=== PATIENT | female | born 1950 | race Caucasian/White ===

== ENCOUNTER → 2018-06-30 08:56 | Outpatient (CLI) | payer MEDICARE, OTHER, SELFPAY ==
[2018-06-30 10:38] LABS: ALB/GLOB Ratio 0.9 RATIO (0.9-2.4); AST(SGOT) 26 U/L (15-37); Alanine Aminotransfer ALT/SGPT 34 U/L (13-56); Albumin, Serum 3.5 g/dL (3.2-5.0); Alkaline Phosphatase 80 U/L (45-117); Anion Gap 8 (5-15); BUN 12 mg/dL (7-18); BUN/Creat Ratio 17.8 RATIO (10-20); Calcium,Total 9.3 mg/dL (8.5-10.1); Chloride 107 mmol/L (98-107); Cholesterol 275 mg/dL (200); Creatinine, Serum 0.68 mg/dL (0.55-1.02); EST Glomerular Filtration Rate 93 mL/min (>60); Est Glom Filt Rate - Afr Amer 112 mL/min (>60); Glucose 100 mg/dL (74-106); High Density Lipoprotein 47 mg/dL; Potassium 4.2 mmol/L (3.5-5.1); Protein, Total 7.5 g/dL (6.4-8.2); Sodium Level 141 mmol/L (136-145); Triglycerides 143 mg/dL; Very Low Density Lipoprotein 29 mg/dL (5-40)
[2018-06-30 11:01] LABS: Microalbumin,Random Urine < 5.0 mg/L (NO RANGE EST.)
== END ==
PROVIDERS: Family Provider Family Medicine; PCP Family Medicine; Visit Provider Family Medicine
DX: I10 Essential (primary) hypertension (principal)
CPT/HCPCS: 36415; 80053; 80061; 82043; 82570

== ENCOUNTER → 2018-10-05 07:00 | Outpatient (CLI) | payer MEDICARE, OTHER, SELFPAY ==
--- NOTE | 2018-10-05 07:00 | BI_ITS ---
MAMMOGRAPHY - BILATERAL SCREENING REASON FOR EXAM: Female, 68 years old. Routine annual screening examination. PERTINENT HISTORY: Non-contributory. TECHNIQUE: Digital bilateral breast joceline (3D mammographic acquisition) in the CC and MLO projections. 2-D mediolateral oblique (MLO) and craniocaudad (CC) views of both breasts were obtained. CAD: Full Field Digital Mammography with Computer Added Detection was performed. COMPARISON: Comparison is made with prior outside examination dated September 20, 2015 and November 16, 2011. FINDINGS: Breast Composition: There are scattered areas of fibroglandular density. There are no dominant masses or suspicious calcifications. Stable benign-appearing bilateral axillary lymph nodes. No other significant abnormalities are identified. There has been no significant change since the prior study. BI/SCREENING MAMM (CAD), BILAT IMPRESSION: Stable bilateral screening mammogram. Yearly follow-up mammogram recommended. (A) ASSESSMENT CATEGORY: BIRADS Category 2: Benign. A letter regarding these results will be sent to the patient by the facility within 30 days. Approximately 10% of breast cancers are not detected by mammography. A normal mammogram should not delay biopsy of a clinically suspicious abnormality. [id number] Electronically Signed: Jaylan Baig MD at 14:02 EST , Service support ,
== END ==
PROVIDERS: Family Provider Family Medicine; PCP Family Medicine; Referring Provider Nurse Practitioner Women's Health; Visit Provider Nurse Practitioner Women's Health
DX: Z12.31 Encounter for screening mammogram for malignant neoplasm of breast (principal)
CPT/HCPCS: 77063; 77067

== ENCOUNTER → 2020-02-29 09:17 | Outpatient (CLI) | payer MEDICARE, OTHER, SELFPAY ==
[2019-11-13 09:58] VITALS: BMI 30.7
--- NOTE | 2020-02-29 09:18 | BI_ITS ---
MAMMOGRAPHY - BILATERAL SCREENING 3-D TOMOSYNTHESIS REASON FOR EXAM: Female, 70 years old. BILAT SCREENINGN - NO FAM HX - NO PREV SURG''S - RT MOLE MARKED PERTINENT HISTORY: No significant family history. TECHNIQUE: 2-D mammograms and 3-D Tomosynthesis of the breast (s) were performed. CAD was performed. COMPARISON: None. FINDINGS: The breast composition is almost entirely fat. Scattered benign calcifications are seen. No dense spiculated masses or suspicious microcalcifications are identified. No architectural distortion is identified. There is no skin thickening or retraction. There has been no significant change since the prior study. BI/SCREEN MAMM (CAD) W/RAZA BILAT IMPRESSION: No mammographic signs of malignancy. Routine yearly mammograms recommended. ASSESSMENT CATEGORY: BIRADS Category 1: Negative. A letter regarding these results will be sent to the patient by the facility within 30 days. FOLLOW UP RECOMMENDATION: Yearly follow up mammogram recommended. (A) Approximately 10% of breast cancers are not detected by mammography. A normal mammogram should not delay biopsy of a clinically suspicious abnormality. Electronically Signed: Kieran Méndez MD at 11:24 EDT , Service support ,
--- NOTE | 2020-02-29 09:24 | BD_ITS ---
STUDY: DUAL ENERGY X-RAY ABSORPTIOMETRY / DXA REASON FOR EXAM: Female, 70 years old. TECHNIQUE: Bone Mineral Density (BMD) measurements of lumbar spine and bilateral hips were obtained. COMPARISON: None. FINDINGS: Lumbar Spine (L1-L2): g/cm2 (1.226) / T-score (0.5) / Z-score (2.1) Findings are suggestive of normal bone density with a low fracture risk. Left Femur Total: g/cm2 (0.951) / T-score (-0.4) / Z-score (0.9) Left Femoral Neck: g/cm2 (0.841) / T-score (-1.4) / Z-score (0.2) Right Femur Total: g/cm2 (0.899) / T-score (-0.9) / Z-score (0.5) Right Femoral Neck: g/cm2 (0.864) / T-score (-1.3) / Z-score (0.3) BD/Dexa Bone Density Study IMPRESSION: The patient is considered osteopenic as outlined below according to World [employer] Organization (WHO) criteria with a moderate fracture risk. Reference Information: The T-score is the number of standard deviations above or below the standard which is normal for young adults at their peak bone mineral density. The World Health Organization (WHO) interprets the T-scores as follows: Above -1 Normal bone density Between -1 and -2.5 Osteopenia Equal to / or below -2.5 Osteoporosis As a practical clinical guideline, osteopenia may be graded as follows: Mild -1 through -1.5 Moderate -1.6 through -2.0 Severe -2.1 through -2.4 The Z-score is the number of standard deviations above or below age-matched controls. A Z-score of less than -1.5 would be considered abnormal. References: 1. NIH Osteoporosis and Related Bone Diseases http://www.osteo.org 2. International Society for Clinical Densitometry http://www.iscd.org 3. National Osteoporosis Foundation http://www.nof.org Electronically Signed: Cristhian Stack MD at 17:40 EDT Tel , Service support ,
== END ==
PROVIDERS: PCP Family Medicine; Referring Provider Nurse Practitioner Women's Health; Visit Provider Nurse Practitioner Women's Health
DX: Z78.0 Asymptomatic menopausal state (principal); Z12.31 Encounter for screening mammogram for malignant neoplasm of breast
CPT/HCPCS: 77063; 77067; 77080

== ENCOUNTER → 2021-05-29 07:46 | Outpatient (CLI) | payer MEDICARE, OTHER, SELFPAY ==
[2019-11-13 09:58] VITALS: BMI 30.7
--- NOTE | 2021-05-29 07:50 | BI_ITS ---
MAMMOGRAPHY - BILATERAL SCREENING REASON FOR EXAM: Female, 71 years old. Routine annual screening examination. PERTINENT HISTORY: Sister with breast cancer. TECHNIQUE: Digital bilateral breast raza (3D mammographic acquisition) in the CC and MLO projections. 2-D mediolateral oblique (MLO) and craniocaudad (CC) views of both breasts were obtained. CAD: Full Field Digital Mammography with Computer Added Detection was performed. COMPARISON: Comparison is made with prior study dated 02/29/2020 and 10/05/2018. FINDINGS: Breast Composition: There are scattered areas of fibroglandular density. There are no dominant masses or suspicious calcifications. Stable benign appearing bilateral axillary lymph nodes. No other significant abnormalities are identified. There has been no significant change since the prior study. BI/SCRN MAMM (CAD)W/RAZA BILAT IMPRESSION: Stable bilateral screening mammogram. Yearly follow-up mammogram recommended. (A) ASSESSMENT CATEGORY: BIRADS Category 2: Benign. A letter regarding these results will be sent to the patient by the facility within 30 days. Approximately 10% of breast cancers are not detected by mammography. A normal mammogram should not delay biopsy of a clinically suspicious abnormality. [id number] Electronically Signed: Jaylan Baig MD at 9:20 EDT , Service support ,
== END ==
PROVIDERS: PCP Family Medicine; Referring Provider Obstetrics & Gynecology; Visit Provider Obstetrics & Gynecology
DX: Z12.31 Encounter for screening mammogram for malignant neoplasm of breast (principal)
CPT/HCPCS: 77063; 77067

== ENCOUNTER 2021-07-24 17:35 | Outpatient (CLI) | payer MEDICARE, OTHER, SELFPAY ==
[2021-07-24 17:47] VITALS: BP 134/88; PULSE 70; RESP 16; TEMP 37.3; O2SAT 100; BMI 30.7
[2021-07-24 19:00] VITALS: BP 105/69; PULSE 66; RESP 16; TEMP 37.1; O2SAT 100
[2021-07-24 19:56] VITALS: BP 125/65; PULSE 73; RESP 16; TEMP 37.2; O2SAT 100
== END 2021-07-24 19:57 | disposition home or self-care (01) ==
LOC: MS3OUT 17:35 → MS3 17:36
PROVIDERS: PCP Family Medicine; Referring Provider Nurse Practitioner Adult Health; Visit Provider Nurse Practitioner Adult Health
DX: Z23 Encounter for immunization (principal); U07.1 COVID-19
CPT/HCPCS: J7050; M0245; Q0245

== ENCOUNTER → 2022-07-02 | Outpatient (CLI) | payer MEDICARE, OTHER, SELFPAY ==
--- NOTE | 2022-07-02 08:23 | BI_ITS ---
MAMMOGRAPHY - BILATERAL SCREENING REASON FOR EXAM: Female, 72 years old. Routine annual screening examination. PERTINENT HISTORY: Sister with breast cancer. TECHNIQUE: Digital bilateral breast raza (3D mammographic acquisition) in the CC and MLO projections. 2-D mediolateral oblique (MLO) and craniocaudad (CC) views of both breasts were obtained. CAD: Full Field Digital Mammography with Computer Added Detection was performed. COMPARISON: Comparison is made with prior study dated 05/29/2021 and 02/29/2020. FINDINGS: Breast Composition: There are scattered areas of fibroglandular density. There are no dominant masses or suspicious calcifications. Stable benign-appearing bilateral axillary lymph nodes. No other significant abnormalities are identified. There has been no significant change since the prior study. BI/SCRN MAMM (CAD)W/RAZA BILAT IMPRESSION: Stable bilateral screening mammogram. Yearly follow-up mammogram recommended. (A) ASSESSMENT CATEGORY: BIRADS Category 2: Benign. A letter regarding these results will be sent to the patient by the facility within 30 days. Approximately 10% of breast cancers are not detected by mammography. A normal mammogram should not delay biopsy of a clinically suspicious abnormality. [id number] Electronically Signed: Jaylan Baig MD at 9:10 EDT ,
== END | disposition home or self-care (01) ==
LOC: OPBI 08:21
PROVIDERS: PCP Family Medicine; Referring Provider Obstetrics & Gynecology; Visit Provider Obstetrics & Gynecology
DX: Z12.31 Encounter for screening mammogram for malignant neoplasm of breast (principal); Z80.3 Family history of malignant neoplasm of breast
CPT/HCPCS: 77063; 77067

== ENCOUNTER → 2023-07-26 | Outpatient (CLI) | payer MEDICARE, OTHER, SELFPAY ==
--- NOTE | 2023-07-26 08:32 | BI_ITS ---
MAMMOGRAPHY - BILATERAL SCREENING REASON FOR EXAM: Female, 73 years old. Routine annual screening examination. PERTINENT HISTORY: Sister with breast cancer. TECHNIQUE: Digital bilateral breast raza (3D mammographic acquisition) in the CC and MLO projections. 2-D mediolateral oblique (MLO) and craniocaudad (CC) views of both breasts were obtained. CAD: Full Field Digital Mammography with Computer Added Detection was performed. COMPARISON: Comparison is made with prior study dated July 02, 2022 and May 29, 2021. FINDINGS: Breast Composition: There are scattered areas of fibroglandular density. There are no dominant masses or suspicious calcifications. Stable small benign-appearing bilateral axillary lymph nodes. No other significant abnormalities are identified. There has been no significant change since the prior study. BI/SCRN MAMM (CAD)W/RAZA BILAT IMPRESSION: Stable bilateral screening mammogram. Yearly follow-up mammogram recommended. (A) ASSESSMENT CATEGORY: BIRADS Category 2: Benign. A letter regarding these results will be sent to the patient by the facility within 30 days. Approximately 10% of breast cancers are not detected by mammography. A normal mammogram should not delay biopsy of a clinically suspicious abnormality. [id number] Electronically Signed: Jaylan Baig MD at 8:18 EST ,
== END | disposition home or self-care (01) ==
LOC: OPBI 08:32
PROVIDERS: PCP Family Medicine; Referring Provider Nurse Practitioner Women's Health; Visit Provider Nurse Practitioner Women's Health
DX: Z12.31 Encounter for screening mammogram for malignant neoplasm of breast (principal)
CPT/HCPCS: 77063; 77067

== ENCOUNTER 2024-06-27 10:53 | Emergency (ER) | payer MEDICARE, OTHER, SELFPAY ==
[2024-06-27 10:54] VITALS: BP 147/86; PULSE 89; RESP 14; TEMP 35.7; O2SAT 98; BMI 32.5
--- NOTE | 2024-06-27 11:43 | CT_ITS ---
STUDY: CT BRAIN WITHOUT CONTRAST REASON FOR EXAM: Female, 74 years old. Dizziness following head injury. RADIATION DOSAGE (If Supplied By Facility): CTDIvol = ( 44.99 ) mGy, DLP = ( 812.98 ) mGycm TECHNIQUE: Transaxial CT imaging of the brain was performed without administration of intravenous contrast material. Individualized dose optimization techniques were used for this CT. COMPARISON: No relevant priors. FINDINGS: Small scalp hematoma overlying the right frontal bone. Normal calvarium. There is mild cerebral atrophy with widening of the extra-axial spaces and ventricular dilatation. Normal white matter tracts of the cerebral hemispheres. Normal basal ganglia and thalami. Normal brainstem. Normal cerebellum. There is no intracranial hemorrhage. There are no findings of an acute ischemic infarction. Atherosclerotic calcification of the cavernous portions of the internal carotid arteries. Normal visualized paranasal sinuses. CT/Brain/Head without Contrast IMPRESSION: Chronic involutional changes of the brain. Small scalp hematoma overlying the right frontal bone. Electronically Signed: Jaylan Baig MD at 12:33 EDT ,
--- NOTE | 2024-06-27 11:43 | EX.ED.GENINJ ---
HPI History of Present Illness Chief Complaint: Head Injury Informant: patient Onset/Context/Timing Onset: Today Mechanism/Context: Fall and Trip Quality of Pain: Aching Location: Right frontal scalp Worsened by: Nothing Relieved by: Ice Associated Symptoms Associated Symptoms: Negative for Parasthesias, Weakness, Loss of function, Inability to ambulate, Loss of consciousness or Amnesia Narrative Narrative: Patient presents with head injury that occurred today. Patient states she tripped and fell forward. Patient states she hit her right frontal area on the door frame. Patient denies any loss of consciousness. Patient states she did break her glasses. Patient denies any visual changes. Patient states she applied ice to the area. Patient states this helped with the pain and swelling. Patient describes her pain as aching. Patient states she takes 81 mg of aspirin daily. Patient denies taking any anticoagulants. [facility] Medical History COVID-19 Pulmonary embolus History of ovarian cancer Home Medications ?Medication ?Instructions ?Recorded ?Last Taken ?Type aspirin 81 mg chewable tablet 81 mg PO DAILY 10/24/18 Unknown History Allergy/AdvReac Type Severity Reaction Status Date / Time penicillin G Allergy Mild Other Verified 06/27/24 10:54 Sulfa (Sulfonamide Allergy Mild other Verified 06/27/24 10:54 Antibiotics) Family History Mother Heart disease Father Hypertension Sister Breast cancer Surgical History History of right oophorectomy History of total abdominal hysterectomy Social History Smoking Status: Never smoker alcohol intake: current alcohol intake frequency: holidays/special occasions only substance use type: does not use caffeine: Yes what type of physical activity do you participate in: walking seatbelt use: always do you feel safe at home: Yes additional social history: [employer] self employed 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 ROS ROS ED Constitutional Constitutional ED: Denies chills or fever(s) Eyes Eyes: Denies blurry vision or change in vision ENT ENT ED: Denies rhinorrhea or sore throat Cardiovascular Cardiovascular: Denies chest pain or palpitations Respiratory/Chest Respiratory/Chest: Denies cough or dyspnea Gastrointestinal Gastrointestinal: Reports nausea; Denies vomiting Genitourinary Genitourinary ED: Denies dysuria or hematuria Musculoskeletal Musculoskeletal: Denies back pain or neck pain Integumentary Denies abscess or rash Neurologic Neurologic: Reports headache(s); Denies weakness Allergic/Immunologic Allergic/Immunologic ED: Denies mouth swelling or urticaria EXAM Physical Exam Const Vital Signs: 06/27/24 10:54 06/27/24 10:57 06/27/24 11:57 Temperature 96.3 F L 97.8 F Temperature Source Temporal Oral Pulse Rate 89 78 Respiratory Rate 14 16 Respiratory Effort Normal Respiratory Depth Normal Respiratory Pattern Normal Blood Pressure 147/86 H 132/78 H Blood Pressure Mean 106 96 Pulse Ox 98 98 Oxygen Delivery Method Room Air Room Air Room Air 06/27/24 13:00 Temperature 97.8 F Temperature Source Temporal Pulse Rate 78 Respiratory Rate 16 Respiratory Effort Respiratory Depth Respiratory Pattern Blood Pressure 137/64 H Blood Pressure Mean 88 Pulse Ox 98 Oxygen Delivery Method Room Air Positive well nourished and well developed General Appearance ED: well developed and NAD HEENT HEENT Narrative: There is tenderness and a small hematoma of the right frontal scalp area. There is no bony crepitance or step-off noted. There are no lacerations noted. There are no abrasions noted. Eyes PERRL and EOMs intact bilaterally Neck full ROM Resp normal respiratory effort and clear to auscultation bilaterally Cardio regular rhythm Rate: regular rate GI non-tender and non-distended Palpation: soft Extremity normal to inspection and full ROM Neuro oriented x3, CN's II-XII intact bilaterally, moves all extremities, no focal motor deficits and no sensory deficits noted [place] Coma Scale: document GCS findings Spontaneous Obeys Commands Oriented 15 Sensorium / Orientation: alert Motor Exam: strength 5/5 throughout Psych mental status grossly normal MDM MDM MDM Narrative Medical decision making narrative: Differential diagnosis includes intracranial bleeding, concussion, and contusion. CT scan of the brain will be obtained to assess for intracranial bleeding. Radiography Diagnostic Testing: Clinical Impression(s) from Imaging Studies Brain CT 06/27/24 11:43 IMPRESSION: Chronic involutional changes of the brain. Small scalp hematoma overlying the right frontal bone. Electronically Signed: Jaylan Baig MD at 12:33 EDT , CT scan of the brain was obtained. There is no acute intracranial abnormality. This was interpreted by the radiologist and was also independently reviewed by myself. Treatment and Re-Evaluation Narrative: Patient was advised of her findings. Patient was instructed to take Tylenol as needed for pain. Patient was instructed to continue using ice to the area. Patient was instructed to follow-up with her primary care physician in 5 to 7 days. Patient understood and was agreeable with the plan. All questions were answered. Discharge Plan Triage Chief Complaint: Head Injury ED Provider: Sean Westbrook Dx/Rx/DC Orders Clinical Impression: Closed head injury, Contusion of right temporofrontal scalp Instructions: ED Head Injury (Adult) Prescriptions: No Action aspirin 81 mg tablet,chewable 81 mg PO DAILY Primary Care Provider: Sean Martin Referrals: Sean Martin MD [Primary Care Provider] - 5-7 Days Print Language: Faroese Disposition Disposition: Home, Self Care
[2024-06-27 11:57] VITALS: BP 132/78; PULSE 78; RESP 16; TEMP 36.6; O2SAT 98
[2024-06-27 13:00] VITALS: BP 137/64; PULSE 78; RESP 16; TEMP 36.6; O2SAT 98
[2024-06-27 13:33] VITALS: BP 134/68; PULSE 89; RESP 14; TEMP 36.6; O2SAT 100
== END 2024-06-27 13:34 | disposition home or self-care (01) ==
PROVIDERS: Emergency Provider Emergency Medicine; PCP Family Medicine; Visit Provider Emergency Medicine
DX: S00.03XA Contusion of scalp, initial encounter (principal); Z90.710 Acquired absence of both cervix and uterus; W01.0XXA Fall on same level from slipping, tripping and stumbling without subsequent striking against object, initial encounter; Z86.16 Personal history of COVID-19; Z86.711 Personal history of pulmonary embolism; Z85.43 Personal history of malignant neoplasm of ovary; Z79.82 Long term (current) use of aspirin
CPT/HCPCS: 70450; 99282

== ENCOUNTER → 2024-07-27 | Outpatient (CLI) | payer MEDICARE, OTHER, SELFPAY ==
--- NOTE | 2024-07-27 09:41 | BI_ITS ---
MAMMOGRAPHY - BILATERAL SCREENING REASON FOR EXAM: Female, 74 years old. Routine annual screening examination. PERTINENT HISTORY: Sister with breast cancer. TECHNIQUE: Digital bilateral breast raza (3D mammographic acquisition) in the CC and MLO projections. 2-D mediolateral oblique (MLO) and craniocaudad (CC) views of both breasts were obtained. CAD: Full Field Digital Mammography with Computer Added Detection was performed. COMPARISON: Comparison is made with prior study July 26, 2023 and July 02, 2022. FINDINGS: Breast Composition: There are scattered areas of fibroglandular density. There are no dominant masses or suspicious calcifications. Stable benign-appearing bilateral axillary lymph nodes. No other significant abnormalities are identified. There has been no significant change since the prior study. BI/SCRN MAMM (CAD)W/RAZA BILAT IMPRESSION: Stable bilateral screening mammogram. Yearly follow-up mammogram recommended. (A) ASSESSMENT CATEGORY: BIRADS Category 2: Benign. A letter regarding these results will be sent to the patient by the facility within 30 days. Approximately 10% of breast cancers are not detected by mammography. A normal mammogram should not delay biopsy of a clinically suspicious abnormality. [id number] Electronically Signed: Jaylan Baig MD at 11:13 EST ,
== END | disposition home or self-care (01) ==
LOC: OPBI 09:41
PROVIDERS: PCP Family Medicine; Referring Provider Obstetrics & Gynecology; Visit Provider Obstetrics & Gynecology
DX: Z12.31 Encounter for screening mammogram for malignant neoplasm of breast (principal); Z80.3 Family history of malignant neoplasm of breast
CPT/HCPCS: 77063; 77067

== ENCOUNTER → 2024-11-07 | Outpatient (CLI) | payer MEDICARE, OTHER, SELFPAY ==
--- NOTE | 2024-11-07 12:39 | US_ITS ---
PROCEDURE: KIDNEY AND BLADDER REASON FOR EXAM: Recurrent UTIs. TECHNIQUE: Bilateral renal ultrasound. COMPARISON: None. FINDINGS: Normal renal sizes, parenchymal thicknesses, and echotextures. No hydronephrosis. 1.4 cm x 1.5 cm x 1.2 cm cyst in the midportion of the left kidney. RIGHT Kidney Size: 10.6 cm x 5.8 cm x 5.1 cm Volume: 467 mL Cortical Thickness (if discernible): 1.1 cm (>6mm is normal) LEFT Kidney Size: 10.9 cm x 5.1 cm x 4.8 cm Volume: 141 mL Cortical Thickness (if discernible): 1 cm (>6mm is normal) The urinary bladder is unremarkable. US/Kidney and Bladder IMPRESSION: 1.4 cm x 1.5 cm x 1.2 cm cyst in the midportion of the left kidney. No other abnormality is seen. Reading Location: [id number]
== END | disposition home or self-care (01) ==
LOC: US 12:35
PROVIDERS: PCP Family Medicine; Referring Provider Family Medicine; Visit Provider Family Medicine
DX: N39.0 Urinary tract infection, site not specified (principal)
CPT/HCPCS: 76770

== ENCOUNTER → 2025-07-30 | Outpatient (CLI) | payer MEDICARE, OTHER, SELFPAY ==
--- OUTSIDE RECORDS SUMMARY | 2025-07-30 07:04 | XMS RPT_ITS | CCD ---
Author Organization [facility] CliniSyin Care Team Providers Care Wet Process Miller Head Name Role Phone Sean Martin MD Primary Care Unavailable Omley, Trevor H Admitting Unavailable Omley, Trevor H Attending Unavailable Sean Martin MD Primary Care Unavailable Jacinto Fitzpatrick Admitting Unavailable Jacinto Fitzpatrick Attending Unavailable Dr. Sean Martin MD Primary Care Provider Dr. Cookie Patel DO Attending Provider Dr. Cookie Patel DO Referring Provider Dr. Sean Martin MD Referring Provider Dr. Sean Martin MD Attending Provider Sean Martin Attending Unavailable Sean Martin Referring Unavailable Martin, Sean Primary Care Unavailable Mario, Sean Primary Care Unavailable Sean Westbrook Attending Unavailable Martin, Sean Primary Care Unavailable Prim MACHINE PECAN PICKER, Ayana Attending Unavailable Bernardo MACHINE PECAN PICKER, Ayana Referring Unavailable Martin, Sean Referring Unavailable Cookie Patel Attending Unavailallison e Sean Martin Primary Care Unavailable Mario, Sean Primary Care Unavailable Cookie Patel Attending Unavailabl e Cookie Patel Referring Unavailabl e Allergies Allergy Classification Reported Allergen(s) Allergy Type Date of Onset Reaction(s) Facility (3 sources) Penicillin G Drug Allergy 1 [facility] (3 sources) Sulfonamides (Antibiotic) Allergy to substance 1 [facility] (1 source) Gluten; Translations: [Glutens] Propensity to adverse reactions to food (disorder) [facility] Repository (1 source) Penicillins; Translations: [penicillins] Propensity to adverse reactions to drug (disorder) [facility] Rep[facility] (1 source) Soy protein; Translations: [Soy] Propensity to adverse reactions to food (disorder) [facility] (1 source) Sulfonamides (Antibiotic); Translations: [sulfa drugs] Propensity to adverse reactions to drug (disorder) [facility] Repository (1 source) Penicillin Drug Allergy 4 [facility] Rep[facility] (1 source) Sulfonamides (Antibiotic) Drug allergy (disorder) 4 [facility] Repository Medications Current Medications Medication Drug Class(es) Dates Sig (Normalized) Sig (Original) aspirin 81 mg chewable tablet (3 sources) Platelet Aggregation Inhibitor, Nonsteroidal Anti-inflammatory Drug Start: 10-24-2018 take 1 tablet by mouth once daily Aspirin 81 mg tablet,chewable Active 81 mg PO DAILY October 24, 2018 1:00am Problems Active Problems Problem Classification Problem Date Documented Da te Episodic/Chronic Cancer of ovary (3 sources) History of malignant neoplasm of ovary; Translations: [Personal history of malignant neoplasm of ovary] 08-18-2022 Episodic Comment on above: 1998, declines kartik ic testing Cancer of uterus (3 sources) History of malignant neoplasm of endometrium; Translations: [Personal history of malignant neoplasm of other parts of uterus] 08-12-2021 Episodic Comment on above: 2001 Other circulatory disease (3 sources) Labile hypertension due to being in a clinical environment; Translations: [Elevated blood-pressure reading, without diagnosis of hypertension] 08-12-2021 Episodic Comment on above: monitors at home. Other injuries and conditions due to external causes (1 source) Closed injury of head; Translations: [Unspecified injury of head, initial encounter] 07-05-2024 Episodic Other screening for suspected conditions (not mental disorders or infectious disease) (2 sources) Encounter for screening mammogram for malignant neoplasm of breast; Translations: [Encounter for screening mammogram for malignant neoplasm of breast] Onset: 08-25-2024 Episodic Superficial injury; contusion (1 source) Contusion of scalp; Translations: [Contusion of scalp, initial encounter] 07-05-2024 Episodic Viral infection (3 sources) Disease caused by 2019-nCoV; Translations: [COVID-19] 08-12-2021 Episodic Past or Other Problems Problem Classification Problem Date Documented Da te Episodic/Chronic Other injuries and conditions due to external causes (1 source) Unspecified injury of head, initial encounter; Translations: [Unspecified injury of head, initial encounter] Onset: 07-18-2024 Episodic Urinary tract infections (1 source) Urinary tract infection, site not specified; Translations: [Urinary tract infection, site not specified] Onset: 11-22-2024 Episodic Results Test Name Value Interpretation Reference Range Facil ity Kidney and Bladderon 025 Kidney and Bladder [facility] Imaging Services [address] [place], [place] [id number] Kidney and Bladder MR#: [id number] Acct: [id number] Name: VIDA GARCIA Rep #: [id number] : 1950 F 74 From: Jaylan quintero MD PCP: Dr. Sean Martin MD Status: REG CLI Study: Kidney and Bladder Date of Exam: 11/07/24 Exam# [id number] Ordering Dr: Sean Martin MD PROCEDURE: KIDNEY AND BLADDER REASON FOR EXAM: Recurrent UTIs. TECHNIQUE: Bilateral renal ultrasound. COMPARISON: None. FINDINGS: Normal renal sizes, parenchymal thicknesses, and echotextures. No hydronephrosis. 1.4 cm x 1.5 cm x 1.2 cm cyst in the midportion of the left kidney. RIGHT Kidney Size: 10.6 cm x 5.8 cm x 5.1 cm Volume: 467 mL Cortical Thickness (if discernible): 1.1 cm (>6mm is normal) LEFT Kidney Size: 10.9 cm x 5.1 cm x 4.8 cm Volume: 141 mL Cortical Thickness (if discernible): 1 cm (>6mm is normal) The urinary bladder is unremarkable. US/Kidney and Bladder IMPRESSION: 1.4 cm x 1.5 cm x 1.2 cm cyst in the midportion of the left kidney. No other abnormality is seen. Reading Location: [id number] CC: Dr. Sean Martin MD Security Assurance Analyst: Signed Normal [facility] Yam Curer Office Visit Reporton 08-25-2024 Yam Curer Office Visit Report [facility]'[address], [address] [place] [address] OFFICE VISIT Date of Service: 08/25/24 MR#: [id number] Acct: [id number] Name: VIDA GARCIA Rep #: [id number] : 1950 Provider: Dr. 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 Complaint: Annual Director Of Learning Required: No Is patient in pain?: No Allergies penicillin G Allergy (Mild, Verified 08/25/24 08:00) Other Sulfa (Sulfonamide Antibiotics) Allergy (Mild, Verified 08/25/24 08:00) other Medications ???Medication ???Instructions ???Recorded ???Confirmed ???Type aspirin 81 mg chewable tablet 81 mg PO DAILY 10/24/18 08/25/24 History Is last menstrual period known: No Post menopausal: Yes Patient : No : No [facility] Medical History COVID-19 Pulmonary embolus History of ovarian cancer Surgical History History of right oophorectomy History of total abdominal hysterectomy Family History Mother Heart disease Father Hypertension Sister Breast cancer Social History Smoking Status: Never smoker alcohol intake: current alcohol intake frequency: holidays/special occasions only substance use type: does not use caffeine: Yes what type of physical activity do you participate in: walking seatbelt use: always do you feel safe at home: Yes additional social history: [employer] self employed 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 Date Name GA/Weeks Outcome Route Bth Weight Infant Gen Labor Lgth Anesthesia Del Locat Provider FOB Unknown 1979 Michael live - full term Unknown 1982 [place] live - full term HPI Encounter for routine gynecological examination Details: VIDA GARCIA is a 74 year old who presents for annual exam. 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 never needed chemo or radiation. Female Reproductive History Questions: metorrhagia: No, sexually active: Yes, dyspareunia: No and PCB: No Menopausal Symptoms: No hot flashes, No night sweats, No weight change, No mood changes, No difficulty concentrating, No sleep problems and No change in libido ROS Const Constitutional: Reports as per HPI; Denies fatigue, increased appetite, poor appetite, night sweats, weight gain or weight loss Cardio Card: Denies chest pain Resp Resp: Denies cough or dyspnea GI GI: Reports as per HPI; Denies abdominal pain, bloating, constipation, nausea or vomiting : Reports as per HPI and other; Denies difficulty voiding, dysuria, hematuria, hot flashes, nipple discharge, pelvic pain, prolapse symptoms, urinary frequency, urinary incontinence, urinary urgency, vaginal discharge, vaginal dr yness, vaginal odor or vaginal pruritus Skin Skin/Breast: Denies changing lesions, breast mass, breast pain, breast skin changes or nipple discharge Psych Psych: Denies anxiety, change in libido, depression or difficulty concentrating Exam Const General: cooperative, healthy appearing, comfortable, no acute distress, well developed and well groomed [facility] Head: normal to inspection and normocephalic Ears: hearing grossly normal bilaterally and external ears normal Nose: external nose normal Face and sinus: normal facial exam Neck Neck: normal visual inspection, full ROM and no lymphadenopathy Thyroid: thyroid normal Chest Chest palpation inspection: normal inspection of the chest Breast inspection: normal inspection of the breasts and normal inspection of the axillae Breast palpation: normal palpation of the breasts, normal palpation of the axillae and no axillary lymphadenopathy Resp Effort Inspection: normal respiratory effort GI Inspection: normal to inspection and non-distended Palpation: soft, no hepatosplenomegaly and no guarding General: bladder normal to palpation Exter (more content not included)... Normal [facility] SCRN MAMM (CAD)W/RAZA BILATo n 07-27-2024 SCRN MAMM (CAD)W/RAZA BILAT [facility] Imaging Services [address] [place] [address] SCRN MAMM (CAD)W/RAZA BILAT MR#: [id number] Acct: [id number] Name: VIDA GARCIA Rep #: [id number] : 1950 F 74 From: Jaylan quintero MD PCP: Dr. Sean Martin MD Status: [facility] Study: SCRN MAMM (CAD)W/RAZA BILAT Date of Exam: 07/08 09/29 Exam# [id number] Ordering Dr: Cookie Patel DO [id number] MAMMOGRAPHY - BILATERAL SCREENING REASON FOR EXAM: Female, 74 years old. Routine annual screening examination. PERTINENT HISTORY: Sister with breast cancer. TECHNIQUE: Digital bilateral breast raza (3D mammographic acquisition) in the CC and MLO projections. 2-D mediolateral oblique (MLO) and craniocaudad (CC) views of both breasts were obtained. CAD: Full Field Digital Mammography with Computer Added Detection was performed. COMPARISON: Comparison is made with prior study July 26, 2023 and July 02, 2022. FINDINGS: Breast Composition: There are scattered areas of fibroglandular density. There are no dominant masses or suspicious calcifications. Stable benign-appearing bilateral axillary lymph nodes. No other significant abnormalities are identified. There has been no significant change since the prior study. BI/SCRN MAMM (CAD)W/RAZA BILAT IMPRESSION: Stable bilateral screening mammogram. Yearly follow-up mammogram recommended. (A) ASSESSMENT CATEGORY: BIRADS Category 2: Benign. A letter regarding these results will be sent to the patient by the facility within 30 days. Approximately 10% of breast cancers are not detected by mammography. A normal mammogram should not delay biopsy of a clinically suspicious abnormality. [id number] Electronically Signed: Jaylan Baig MD at 11:[address] [facility] Reading Location ID and State: [facility] / [place] , Service support , CC: Dr. Sean Martin MD; Dr. Cookie Patel DO Security Assurance Analyst: Signed Normal [facility] Brain/Head without Contrasto n 06-27-2024 Brain/Head without Contrast [facility] Imaging Services [address] [place] [address] Brain/Head without Contrast MR#: [id number] Acct: [id number] Name: VIDA GARCIA Rep #: [id number] : 1950 F 74 From: Jaylan quintero MD PCP: Dr. Sean Martin MD Status: [facility] Study: Brain/Head without Contrast Date of Exam: 06/07 10/30 Exam# [id number] Ordering Dr: Sean Westbrook DO [id number] STUDY: CT BRAIN WITHOUT CONTRAST REASON FOR EXAM: Female, 74 years old. Dizziness following head injury. RADIATION DOSAGE (If Supplied By Facility): CTDIvol = ( 44.99 ) mGy, DLP = ( 812.98 ) mGycm TECHNIQUE: Transaxial CT imaging of the brain was performed without administration of intravenous contrast material. Individualized dose optimization techniques were used for this CT. COMPARISON: No relevant priors. FINDINGS: Small scalp hematoma overlying the right frontal bone. Normal calvarium. There is mild cerebral atrophy with widening of the extra-axial spaces and ventricular dilatation. Normal white matter tracts of the cerebral hemispheres. Normal basal ganglia and thalami. Normal brainstem. Normal cerebellum. There is no intracranial hemorrhage. There are no findings of an acute ischemic infarction. Atherosclerotic calcification of the cavernous portions of the internal carotid arteries. Normal visualized paranasal sinuses. CT/Brain/Head without Contrast IMPRESSION: Chronic involutional changes of the brain. Small scalp hematoma overlying the right frontal bone. Electronically Signed: Jaylan Baig MD at 12:33 EDT Reading Location ID and State: [facility] / [place] , Service support , CC: Dr. Sean Westbrook DO; Dr. Sean Martin MD Security Assurance Analyst: Signed Normal [facility] Emergency Department Summary on 06-27-2024 Emergency Department Summary [facility] Medical Records Department [address] [place] [address] Emergency Department Summary 06/27/24 MR#: [id number] Acct: [id number] Name: VIDA GARCIA Rep #: [id number] : 1950 74 From: Sean Westbrook DO PCP: Dr. Sean Martin MD Status:DEP ER Location: ED HPI History of Present Illness Chief Complaint: Head Injury Informant: patient Onset/Context/Timing Onset: Today Mechanism/Context: Fall and Trip Quality of Pain: Aching Location: Right frontal scalp Worsened by: Nothing Relieved by: Ice Associated Symptoms Associated Symptoms: Negative for Parasthesias, Weakness, Loss of function, Inability to ambulate, Loss of consciousness or Amnesia Narrative Narrative: Patient presents with head injury that occurred today. Patient states she tripped and fell forward. Patient states she hit her right frontal area on the door frame. Patient denies any loss of consciousness. Patient states she did break her glasses. Patient denies any visual changes. Patient states she applied ice to the area. Patient states this helped with the pain and swelling. Patient describes her pain as aching. Patient states she takes 81 mg of aspirin daily. Patient denies taking any anticoagulants. [facility] Medical History COVID-19 Pulmonary embolus History of ovarian cancer Home Medications ???Medication ???Instructions ???Recorded ???Last Taken ???Type aspirin 81 mg chewable tablet 81 mg PO DAILY 10/24/18 Unknown History Allergy/AdvReac Type Severity Reaction Status Date / Time penicillin G Allergy Mild Other Verified 06/27/24 10:54 Sulfa (Sulfonamide Allergy Mild other Verified 06/27/24 10:54 Antibiotics) Family History Mother Heart disease Father Hypertension Sister Breast cancer Surgical History History of right oophorectomy History of total abdominal hysterectomy Social History Smoking Status: Never smoker alcohol intake: current alcohol intake frequency: holidays/special occasions only substance use type: does not use caffeine: Yes what type of physical activity do you participate in: walking seatbelt use: always do you feel safe at home: Yes additional social history: [employer] self employed 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 ROS ROS ED Constitutional Constitutional ED: Denies chills or fever(s) Eyes Eyes: Denies blurry vision or change in vision ENT ENT ED: Denies rhinorrhea or sore throat Cardiovascular Cardiovascular: Denies chest pain or palpitations Respiratory/Chest Respiratory/Chest: Denies cough or dyspnea Gastrointestinal Gastrointestinal: Reports nausea; Denies vomiting Genitourinary Genitourinary ED: Denies dysuria or hematuria Musculoskeletal Musculoskeletal: Denies back pain or neck pain Integumentary Denies abscess or rash Neurologic Neurologic: Reports headache(s); Denies weakness Allergic/Immunologic Allergic/Immunologic ED: Denies mouth swelling or urticaria EXAM Physical Exam Const Vital Signs: 06/27/24 10:54 06/27/24 10:57 06/27/24 11:57 Temperature 96.3 F L 97.8 F Temperature Source Temporal Oral Pulse Rate 89 78 Respiratory Rate 14 16 Respiratory Effort Normal Respiratory Depth Normal Respiratory Pattern Normal Blood Pressure 147/86 H 132/78 H Blood Pressure Mean 106 96 Pulse Ox 98 98 Oxygen Delivery Method Room Air Room Air Room Air 06/27/24 13:00 Temperature 97.8 F Temperature Source Temporal Pulse Rate 78 Respiratory Rate 16 Respiratory Effort Respiratory Depth Respiratory Pattern Blood Pressure 137/64 H Blood Pressure Mean 88 Pulse Ox 98 Oxygen Delivery Method Room Air Positive well nourished and well developed General Appearance ED: well developed and NAD HEENT HEENT Narrative: There is tenderness and a small hematoma of the right frontal scalp area. There is no bony crepitance or step-off noted. There are no lacerations noted. There are no abrasions noted. Eyes PERRL and EOMs intact bilaterally Neck full ROM Resp normal respiratory effort and clear to auscultation bilaterally Cardio regular rhythm Rate: regular rate GI non-tender and non-distended Palpation: soft Extremity normal to inspection and full ROM Neuro oriented x3, CN's II-XII intact bilaterally, moves all extremities, no focal motor deficits and no sensory deficits noted Benezett Coma Scale: document GCS findings Spontaneous Obeys Commands Oriented 15 Sensorium / Orientation: alert Motor Exam: strength 5/5 throughout Psych mental status grossly normal (more content not included)... Normal [facility] Coding Summaryon 04-05-2024 Coding Summary HTMLBase 64 ZfqwqbvsAHn5sAd+PGhlYWQ+ IU9JTFYkM63kyQFajZ9iM8PI TElOSywgQVBQTElOSyIgbmFt SS2lpWJaCRHz IC8+WZ3yQQTyDsqrhYEbn3E9 eSD1W14dww4eOShjxYU9PPUw XnXbaqumt3ictTv0ZHsaYzgb OyBt MJIreO76VYF9yR36El56dLOi uYUve9raiYc1KgIvBROtPTC0 sLbhXLowx0JsOJQvH65jvTBh c2U6 AGYhyAinnPLrOzRckFL7fA3u SQrqpovof2dknxwsFta8ll42 gQRyy3B1dWX9O2ZvkaS8TINw bGQg IrstqEBJhJ9wccraj3zumdrf SrFaUFOmSKv9ADl4IKGuzJbq HmIeJC23PJQ6FNIonzEyK9Uz LWFs hYxnPzG8a2N9Lj9NS6VPFaxu S2MUKTOYZOogzCA+RU05bu06 T0ZoBpqrTtr3OIKdBSX8oJB1 aD0n YXYbGWabj1O2eEM0H3CrpgRk du7xi7tiQRMrLIceI06duREs i4Z7KAWglOL5GHXlkEqsTiHq aG93 Oyc+BYFabWrnk9NeHscsv5sh m4klnUh8XbkfEBPbdpYgkUth WVB0w8QeCf4xMPIheRY2bIW6 aD0i PpMzUmD1TAbhB696WmKsuDUf InxiO18lJ9TrjVL+PHRyPjx0 VTCjvZolFB9fK3SbMBDkupij bGVm pXtbVV2rPBBixtbdJUXilF4m PKDhA5c4ZlNgIdF4EFmaP6Ls UCCfvsadTe93fI6zUnXtZdJ0 MGlu F7FsfrD3AJWnpCHwHNbgQSA6 T07dx8V4ZKEiRWDsFXF8bLL4 xP5hvXhitcwnrVTdbAinwnHr dGlj BKwtZZleS997WGDutUxeWhQn ZGluZyBEYXRlOiAgMDcvMzEv MjAyNDwvdGQ+BXMoXRC1pShf PSAn cHAuCOnyVz2rfCxfqTjaCM8j XKHutopaARHfoU5yLLTonWAj wOplEY8sXAUtmsyez481KaUf MHB0 SWIzfHTiF6JtqK1bNvMnXNNz WLZjZ4XesTMxSGrfX655OSod ZuV4NXAlbfFcE8PsJUGfeHzc OiB0 a1Y2Ff4Te9ZaqdqdG6RarQFg KjUsOortIXu5N8GuSlakkBZ+ DB65YUOlHO47DGj8MDF9cFde PSdi TYIdE7XnoX7uWpFkONLlESQi Oyc+PHRhYmxlIHdpZHRoPScx HQMtDaCoxCwnHT1cXu7mRJTk LWNv rEcvbSVbQcEhq4kjFJHiPHbw JM3rvHynF4LuyZM7ATGia8b4 Hx24S61iF4LavKS+PGNvbCB3 aWR0 bC1cUuMtReY9WJprO315TyAl tFPzUxhqk6now8flqZz8UeF7 BKKiexJldIxjTIH1k5UxMz45 Y29s IHdpZHRoPSIxNSUiIHZhbGln yf2gzB9sBn3+DPUeeEJ3zZE7 oU0tNiJmXsC1YIwsY973WmRw cCIv Inxjj1edn2gczPa7TxVlKCMz msKglJklSBM9k3CdXo40J2Qg pWsdy5MhKjj2rx87yLNrj9T3 bGU9 Q7XvTJEilvpxnZGolBqsZD0w JTCdqlmiGQLiyL4uGFSmT1b6 JdXkBvK3IKmlL8FxwlO5GPNn bGQg KUBvcHOWzF1tbwtbt6bzaymw UrXnLUHlEHg6ZWc2CVOmoKvo BxVfYZV2DzZ1XVD2nSIrtZ7x bGln jeetfG4rPsv+IUZ7yMRqwSBE UU3iMfmoeLV+UBFnVKE9wPwn YDkbVULigD9vAWFnE9p6DnLy LjA1 BMolU6MlliY0KTCzvOLnTEGc aHJRyS3zglguq9ufvairCmBy ZFCbXBc0VYv2OPWoqHqcDvOs ZWZ0 IdK8NPU6wQSjiF7quUusjiwa vJ4xHvf+YpymxZwrFMK1GVw0 B4NqMlz7GYCrrKpnOY6yfYVb ZGlu Fk7pmZgmgKygZO9qRAQywzws h583EkZdl1uwZZBtwNNxJOyx RNG6I43gw5L6SNLuWMUiDJM4 dGV4 eF5boEehheszvLAmpTgfeaJe uOsxLJglUQubH581BGQimYcx PzErCQd6Y4QfAje0BPHuoQdw ZT0n cYOsRBaiOn8qkOyndSkrBS7j VZCggqxvs484EfYgs4hoCVYt gJEpQGatLLO9U06fp2W0QTSw MDAw LZJ3fKC8eB3rbMwuspaknBBd dYmditIfeGpcQDbuVCivL224 HIGztGunIoZjvZh4X5DpObf7 ZCBz eNyqON3umGOtNDlnAl0xtLch hAkqLM8xDZJelfppl600BeWj k2brTTMjtLQmMDwfXZR8J12r b3I6 KXCzHKVzTBF7wEF7jD3urNgl bjogbGVmdDsgdmVydGljYWwt VCkwV560IRHgkAtqUtJdfSeb bnQg AEfzQUy9N7XnJwmczES+PC90 THZvKN74vVCxnGEen8atxQx9 OaSmYFImGZV6cHtnCKkox2Ku ZXIt D30mqVLzb1B2QPQizYfwfNIn KzPfaXC2cA6fEDoismedm6sk fxiyXxeqn1zxqb72nU05F04l IHdp ZVLnZIThKNZcTIHkmSitev5o mB9mCc2+SBLyuLN8uUS2eB1m WEKlFxP6EFjhM255OsSymASo Pjxj f1ymr4jptPx7ZfW2FOOvzlXa pOdkNGV1r9BcRg03U44bHPli EEHhFKKuHTSnLFIlpTpggo6u dG9w Ii8+LROiwQG8xRD2xJ1mIjVc SiC7JWesY286FaSrsDPbTdqx M40fO2QygAH+KCEiLfh4RVQa dHls HG7wmTViYJssPf8pTJN5JfJo OmIrILwjW1UcFDJxjaleagbt kXJ7ERBeKHHllQ66Jq5naMjs MTBw hUDGgO1ncbqfk9ltqnqlLvAq AGKlVOr3AFx9FFUwsNnaSgEm EHC5VeE1VKL6pBWqlA6xuGrb bjog wU4jR2JeSIEwodorKf98yT8k TiGuClE6RMmcMyb+WbeVKD5C NIRIZXZXMTHJCG10YC16cZFo c3R5 bJI2T4JwOJMqcnvbmmkdzMF4 CTDlKLXstC82oJXjBExpLr2m x0N1l904WHIbYLAnkM46Gv4r dDog QQTgvHJUzU1llqkfn0gpiuwu CwXcKBCiPTv3CRr7MBRvoYig KlPqYTD3UsA7PRI5sMWeeN7w bGln zvcigM6gQty+MDYvMTMvMTk1 MjwvdGQ+VXFqQQI7bWahSHhl ZTTssK9cOIHuF1b6QmNhOtB3 MGlu V1TlUHIzpjroBy02cA6vSjDz EhF7FAgtO0ZbsdW6ZTGfxUTj MTrbFTK5M35na0F9HQLzSZOi MDA7 nTD4uZ6eiBzhoxlgwZDicUrp skJmhTueOCwvRAlfO861OJGr rAzbEukeUJqoRIAiBB56IN56 dGQg c6L7tTA4I6MoWHLnmrdxyvww cHO2ARZtAPPqmM85dCAbQAkd Ff3bd3Q4i908WIZbMWBagH05 Zm9u eDoaMEGkpXXJrY7gtkueg8bk fkhbAzUzUUAoBOs2TMl0IEEj iUdqQwAmNSD4FnN0HRG7rTNg bC1h oBrtszrkjR7zYgp+RkVNQUxF CN59WN53vCGdq2Z2eJJ8H0Bk MAWmkzvmwcserLQ6ALUpVKTs aW47 mFZzAGteNr7ps9O4h960YJMw EQHhjD77Yq1qmZniVQXsyMYH oE1kdlltf6hkrdnhKmSyNJQx MDt0 CAm2GCAqrKzmNoLfCDZ4BkW7 PZB8pFJgeN6anVgxiipzkY1z Oyc+KO0vmbdgayM1XL36NM10 L3Ry PjwvdGFibGU+PHRhYmxlIHdp JOWaYUnjVMAoBkKtgKiePA2k Ag1fYXGhUFVfvEnpkXVoSiAq b2xs BYWsYRwaUX0dlDdkU9KpzWU0 BQEbz8h8Dr26X24uV2WcrMP+ EDGdfRK7dSG0fZ4aNlZgAaX9 YWxp S670SxLulDBzGsryg6cjc8yx xJf4LvZzBWLwjrXgrDcgMFS4 z1NaVc72M53iCMdzGFAfVICk MCUi PQRrfKpdrg0iiF6rHc3+PGNv iCG3iNZ9vD4pXhJhOeH7DVit L382XkXfwKGfWhydZ40gW3Zj dXA+ OCFsNpg9PZRojFwyMI2yfAAx LLgdRs1gVZX6DeKrCnAwBJuc W0DcZKOzeeioegvfxBY3EALz MDUw hN87Mh4qtNnyJt3jFOTdUUL7 CGZfsKRwK0NouI8uWaTyWXJi LEEsU1PclGPkQRjdA358HRts ZnQ7 ZLOblcToS8KiSZYyrMskNcR9 r3R1Dh5VxUprsFJcCB8qDpPm NDk3D4QsPrr6MRCppMqbRZ6m cGFk FSalAd4qaVhjtYgqNC7jZLXl rwpuo621KnDfw7qmNTCjlUEl WFevNPO6B34xx0I1WHXiUGBk MDA7 qLU0nJ5gwAatbriplKFoaBhe gxNyqVreSLxgBRexM391SQXw aBkuXwEUKjj1B7XcRyz8MRPo dHls IW8leVCjALajKl5kvIfnnXkt FN1zQQAaxywoe587MkBxj8ty KHRidPRaPSaoAZH8L36iu0E7 ICMw KRLlSZS1eLZ7xC1cjHspzgxp bGVmdDsgdmVydGljYWwtYWxp O594ATLxfMsoZt2RLig3E5Xl Pjx0 QYSzxFrmRB1ibXGdZSirIb2b oJqqnMdzNZ4bNZOqkajus449 UhCwx0ibULDvgBItNQuoDCG7 Y29s d2F9VXZbNFLeUUX7xTM6hA3a bGlnbjogbGVmdDsgdmVydGlj MEnoCBboR994QXJmfIweRoBm eWVy OjwvdGQ+JX89di33R2QcEjld Wvv4CPFqKTS4eKH9uL7lSGYn OOgab9V5kTI4E1DnrrAbtg5c b2xs YXB (more content not included)... [facility] Coding Summary HTMLBase 64 GfxqrpopGXa0mGe+PGhlYWQ+ LG0SHBVlO14ltLXraG6cX1QZ TElOSywgQVBQTElOSyIgbmFt LW2jqTVpMFEd IC8+UA0eQHDdSxzegCLio9F2 aUP2X82fok3aJTxhxQI2OHZz UgKzwngzc1dfzXz9PJdcJwek OyBt IUMjvS42HYQ5aD76Rb12fYYa pNJod8fpvQx4VyBlCRTvLRP0 cPlcRDnub8OdZLPaO04isXQs c2U6 HTYmmYzafYAjApXkkMV2gX7z BDcqvapya8sajtifByp5wi71 bOHuj3G0nOF7D9YnurW1WQJo bGQg JpnjjPZDwN6mrjtzy8umopui SxMnSEBzNUp1JEb4TFUzyCjh UfRiST87XVV9IVZgxoOjZ7Xt LWFs nLecJkV9l0S9Hj5JD8CYOnlw E1AVZMWONQbvuPL+RB29my19 Y9AlBzbjFxw7HPGoUCP0fCZ7 aD0n XBNoCJcbk6X9yLT8T3IhfeSj rf2br9msFTKzQOlgB28fzCPt x2E4DCQeuJD4RZKemWhkTrAy aG93 Oyc+SSFvdUeld8YwAnslu7wf i9sqlXq4GavoIFSiecOriCrn YXK8x2YaHd0iSAIfdWR2zLP5 aD0i CfGxOmZ8OFqqH158LxXdfWEd ErxcI74qM4PfoDB+PHRyPjx0 EFAbwVhqLY5cS5HiJWOxdkkg bGVm qQfySV1dWQAbitvlSOFdkA7n CFQiT0w9QzWlRfB6BPdkJ0Cw FWHecggiNg85cS6lCuIbMyQ3 MGlu R8OckkE8OPTrwGGuYUyqHIQ6 B07yw5Z5KJZoOSQcIBM2gYP6 hV3cpGxqhtvmeGGazCzsuhVg dGlj RFozLHicK420ZPKmuKobVaYn ZGluZyBEYXRlOiAgMDcvMzEv MjAyNDwvdGQ+AIEhTQM9sCdj PSAn tLVcWGqbKc4nqOpdsVxwQC9h ODWuxechSAGznG7sEECrkNKu pNzpMY8xILXlquvzt529GvPm MHB0 SFWbjPKlE3ZzlK4xRoUbXESb PASoA5WblHIqSYtiU837BVtr OfO0RPZuevYvL7JvJGWaiSph OiB0 l4V1Zn0Vj1VghcnqA3XufIJt TkJlLtjtIMt9O5FvKckkpFU+ VV99HTOfCV04HMm6RJK1rOhz PSdi NHHxZ2BlrC1tLjCwNHEcIWWe Oyc+PHRhYmxlIHdpZHRoPScx IVVmXhEngUacXO0xLv4pXMZx LWNv mQahqITlDwDsf6eyQIBdCVbi DN4rwSbmV4ShdPI0LUUty2w6 Eu52P33gQ7SrtRJ+PGNvbCB3 aWR0 iH0pPcVeScS0ESruV991WbRm gQIgNplmv3inf1noiSs6BfT4 HPXvsdRxaYnxMXB7f1MaPb75 Y29s IHdpZHRoPSIxNSUiIHZhbGln nt6xlS2gKo7+FWYsfCV4lIW0 aZ3hFdNpVpV5MMjbV454TtZf cCIv Mmylp2prg8bxwJx3BlGeXRYd brBzqTaxCVB2k2ZeLj53F9Tp wTfml6IrNmj5mv81hONmc1T2 bGU9 O0MkVFUlweuzdAHisNcqRL6w FNVfeogcZVQwxA8oRWBlJ7n5 KgNjUwA6WBwdT7JpjfU8FFSf bGQg TFMjcPAIgP4wracwm4mezfje BiNvLLLyFAi2JGv6YMTrfUng ZgNcWAO3RjF2OKQ7aJAemX2x bGln axuhlY7dEol+DWL4gQZtdBOC AP8bUlpxaPQ+KWSeZHU2hLwd QQgwDWMcpC0cLHPbQ6w8KdGt LjA1 HUlyF3BgojG1ZPLocRWgICFi nVQBiS8nghxhf5hrqnfbLiQh YIHwMWz3XCd5WHHlvMjtPcMy ZWZ0 UxC5KFG8jWLtnX0epViypohs gS7qSbu+HeyslWblWJS6MNu9 T6MvKie0SUUgzDsmYX6ctBFh ZGlu Aw7esTwtjUyiCK2lXVTzjpuj v108ZhTzs9cgQLSgkAPaZEve ITC3A92yr7N7ZGDeRZUjYRC9 dGV4 kY6jyQfnbbyddFHsxBcpfcRf eLauZVryLLfvK219WWBnyXhm OoJhKMn2H3MiHoj5BSNnoRpt ZT0n hRUnMVbtYd8veCylqPmoEH6c SHBxushzu393AqYno2rxCGUn xLMnGRetMKY5L52jj8K5DHTt MDAw JAV8pKU1iV4mwMirtcoskIZn iBgxlqPsoLciPAiaDWoiG328 JJLzuDywSqZvxXv8R4VkPcl0 ZCBz fFqtRK4nqORsMWwbTm1pvPyo fGdmHU9aXPDiytkgc996ZaWg f6fuRDSwmWTgNXblGSU7V08x b3I6 GNJoCOXxTRF0cFR4fD1dfWda bjogbGVmdDsgdmVydGljYWwt RWptQ733SQQntWrsKiMtxHpr bnQg VGwwPNa3V7IiOjinpHG+PC90 WGPpHQ36cYPurRPkn2hctHp8 ZdZdDALrFPP6yHgjQHrav0Yt ZXIt A25bySEzf7R8JJGajMqheRPr OxVqiVV1rF0hRNdsywild9sv wmopXcdcn6wqkg46zQ07G90s IHdp XVAwQRBdKIDvMHIymMmbcw1u qT7zFr8+VQHrpVH5fOD8bZ5u GWPeTwT9DGijZ039WcNzrHNz Pjxj z5pco7fywIz3BtL8XCUaydYb jRstRCJ3d9DoQb67L73sRImb JKDrMHLaJXYbOMWamDmigr9s dG9w Ii8+LHKciIM8jMZ3fT8jKiTk FzC0FBvnS967PuThsMWuGlpp S31hT5LtzBG+KJBuBrb3UNTa dHls VY8hjJLdWGddFr0fCUF7EgFn FrNhXGmbC7GoAQYxwptjrjam qXE9GPRsJKNwbS59Oz5obQfk MTBw zSHUzA6suxwoz9fvelrrFxCv SLXsHVg6GVe9XNIccYvhNfWj NTK8XhA1KIY0sULamQ0hmLtu bjog tO3dS3NiTFJsaqueKv36dN6a LxWtWhC9ZJfiXlw+HozIUJ8Q IRHNCBHZQYCUYB76WP85oDSj c3R5 sQR0O0AuKTIbxgsstgybpAF0 JQAwMGWrzA87cQHdAHedXm8u v2R2y448MJBlGQWakJ10Yv1c dDog GKHlsUBEeL7itpgaf1ngwdcc HnSlTJNeFOj2IUg9ZKQmbFih FdUgEWR4TxO5ORN0kADidI4f bGln nbzviK1wSnq+MDYvMTMvMTk1 MjwvdGQ+UBLiRSH1lOgnUTtf GKFelW3vGJClG2m6ClHuCyD5 MGlu P4LmRSIhxwfwOf55yH2mHlAk GfZ7FUbmC2ExxjG3RAItqNFl FNilHUA8P56sk6A8PQQuREOc MDA7 fEK7dQ2hzPlcgppymAHktBmk xnQgxYulMTnoYUerC592DJUq aHwuEemnNAkrOPOzWO05NL05 dGQg y4T1kCE9U2BjMXMqghgqshpy gLK9IOMhOJPetU02yMWyJOjk Wz8bp0S3j065XVWfGBWcqB91 Zm9u eWoySXRpzXRVfW3kpyoeo6ot qbmzTjXwQBIbGLw9RLr4GUMd xJpbKxEyAXK3FuX3MBB2oRYu bC1h sLmpomsecA3rAwr+RkVNQUxF AD83LY39hFIwc1O8fHW7M8Rv RWSdmekwfxtouXI1ZWWmNSSx aW47 yJSxOOoxFx8ke0Z5h834SJMz HZTpoL07Qs6oeVxrAPJxgOFD mR0dxfzit7avemszMhKeARLi MDt0 ZPp2KHAgmTinNdGqAKQ0OrC8 NLL7lOFetD8elRvsonjecU7h Oyc+QK5zjbidsrA0II81QI70 L3Ry PjwvdGFibGU+PHRhYmxlIHdp JDScRFpoARUvWdRozVaeNX9j Cq7aCTVgMTRfpXhynGQjNsEx b2xs TXXvBMnfVT4bkNvzH8GvyMR7 MPHqw9p6By81N10nY5OqmKB+ DFHmxZW1zTW6xQ5kJkEwCgU8 YWxp U230WnRkqPWrZjzod7run4za nXb1JhSdAZDswzKilTcgLGV3 x1VlXc01O61qDXlaUWIjLGLc MCUi RECieFbiaz0xpO9oJe5+PGNv bTZ1zID4lC9gYyRdLyZ3XQcu W138MhUrxNOiCkksN61gQ6Xe dXA+ UEUySqt3NHMkoZmbTS1vhXMq XUobCe4oTCD1XfOgEhRjSMhn J0TtXPVdohnlrukazUM0MQWb MDUw eJ26Ux1vuDhcLm8mUMXlRSI6 LNSgtFEsA5UmyC5vBmUkVDOi EPRrU9JogAIxPFlkQ280TMiv ZnQ7 MPWuitNiQ2HyUNNprLqvJuZ3 b0T0Fs5CuRatvWHuZM5sYnCn FAa3Y8HmIww2DGMjeUpgEC8r cGFk NEydCl4coMjutEbyPG7mSGOo lydzg256JfOyf4jaEYKljVAe NVomPWH9Y45oc2C1ZSDhRVTl MDA7 lSS0mI7ueAlkkzvlfMAslEnh enQosEfkPLzmVYdtD321MEJc kSsgGsPCNoo2I2KpQwq2CERl dHls YS7yoBBjHCxxVe9onHvzaQba OU5rOCGhzdipx371TvNir2qo BAZpzCPxORgqVVT6L39rs3C0 ICMw XLIlHCV9jIJ4iE3cpGdqwalw bGVmdDsgdmVydGljYWwtYWxp A497BZHwmTxnBz6FTtx4O1Km Pjx0 ETPprHoeOZ4dqHNpIQyjPl5z xKpjxRfsPQ6jVCAarnrrv755 CbWyz2goJCCkbUMcNRfdZFY8 Y29s q6F8PVBvQAKzKRE0iNQ0bK9a bGlnbjogbGVmdDsgdmVydGlj FSsqRBvcH709EULoiLggYuKh eWVy OjwvdGQ+ZA93yl98O5RpTptm Rsb2FUBbYRU8yFQ7tX0bEGBg CAvyq9P4oMP6W4YvcsMois2g b2xs YXB (more content not included)... Normal [facility] ED Clinical Summaryon 2023 ED Clinical Summary [facility] - Emergency Department [address] [place], [place] [address] ED Clinical Summary PERSON INFORMATION Name: VIDA GARCIA Age: 74 Years Sex: FEMALE : 1950 MRN: Acct#: Visit Reason: Allergic reaction - minor; RX ALLERGIC REACTION Arrival: 03/27/2024 08:36:19 Discharge: 03/27/2024 08:59:00 LOS: 000 00:23 Check In: 03/27/2024 08:36:19 Checkout:03/27/2024 08:59:00 Address: [facility] [address] [facility] [address] PCP: Sean Martin MD PROVIDER INFORMATION Provider Role Assigned Unassigned Jacinto Fitzpatrick MD ED Provider 03/27/2024 08:37:00 Shundecember 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 03/27/2024 08:45:25 VITALS INFORMATION Vital Sign Triage Latest Temperature Tympanic Temperature Temporal Artery Pulse Rate O2 Sat 98 % 98 % Respiratory Rate 18 br/min 18 br/min Blood Pressure /92 mmHg /92 mmHg MEDICAL INFORMATION Medications Given: Allergy Information: Soy; sulfa drugs; penicillins; Glutens PHYSICIAN DOCUMENTATION DISCHARGE INFORMATION: Discharge Disposition: Home Discharge Location: Home PATIENT EDUCATION INFORMATION Instructions: Shingles, Ibkf-kr-Rone Follow-Up: With: Address: When: Sean Martin MD [address] [place] [address] Within 3 to 5 days DIAGNOSIS: 1:Shingles; 2:Anxiety Patient Understands: Yes - Patient/family/caregiver verbalizes understanding of instructions given Comment: [facility] ED Patient Summaryon 024 ED Patient Summary [facility] - Emergency Department [address] [place], [place] [address] PATIENT DISCHARGE INSTRUCTIONS Patient Information Name: VIDA GARCIA Age: 74 Years Date of : 1950 Reason For Visit: Allergic reaction - minor; RX ALLERGIC REACTION Arrival Time: 03/27/2024 08:36:19 Primary Care Physician: Sean Martin MD Attending Physician: Jacinto Fitzpatrick MD Comment: Visit Diagnosis: Diagnoses This Visit Allergic reaction - minor ([id number]) Anxiety (F41.9) Shingles (B02.9) The Pharmacy at [facility] is open Wednesday through Wednesday from 9A to 6P and Wednesday and Wednesday from 9A to 5P Prescription Information: If you have been given a prescription for narcotics, seek immediate medical attention if you have any difficulty breathing or any sudden status changes such as confusion and sleepiness. If you or anyone you know is experiencing suicidal thoughts, mental health, alcohol and/or drug addiction problems; contact the [facility] 29/03 Crisis Hotline -Text 0LZPJ to 703181. If you received any narcotics, sedation, or any other medication that causes drowsiness for the next 24 hours, unless otherwise directed: ? Do not drive a car. ? Do not operate machinery such as power tools, lawn mowers, drills, sewing machines, or stoves ? Avoid alcoholic beverages and drugs for allergies, nerves, or sleep ? Do not make important personal or business decisions or sign any legal documents With: Address: When: Mario NEGRETE, Sean Gorman [address] [place] [id number] Within 3 to 5 days Medication Information: The exam and treatment you received today in the [facility] Emergency Department were for an urgent problem and are not intended as complete care. It is important for you to follow up with a doctor, nurse practitioner, or physician?s dental front office assistant for ongoing care. If your symptoms become worse or you do not improve as expected and you are unable to reach your usual health care provider, you should return to the Emergency Department, we are available 24 hours a day. For those patients who have received Radiology results, the interpretation of your X-ray as given to you by our Emergency Department physician is only a preliminary report. The Radiologist will review your films and if there is a change in the diagnosis you will be notified by phone. Please make sure you have provided a working phone number so we can reach you if necessary. In the event that you had a lab culture while you were a patient in the Emergency Department, you will be notified by phone if there is a need to change your antibiotic. Please make sure you have provided a working phone number so we can reach you if necessary. [facility] Emergency Department has provided you with a complete list of medications post discharge. Please inform your spiral binder/provider of your visit and for further instruction on these medications. Any specific questions regarding your chronic medications and dosages should be discussed with your primary care physician(s) and/or pharmacist. Additional medications on your home medication list not specifically addressed. Please contact the ordering physician if you have questions about these medications. aspirin (Aspirin 81 Chewtab) 1 tablet Chewed every day. valACYclovir (valACYclovir 1 g oral tablet) TAKE ONE TABLET BY MOUTH TWICE DAILY. Visit Information Allergies: Substance Reaction Symptoms Type Comments penicillins Drug sulfa drugs Drug Glutens Food Soy Food Vital Signs: Vitals and Measurements this Visit (last charted value for your 03/27/2024 visit) Vital Signs This Visit Temperature Oral: 37 DegC Heart Rate Monitored: 78 bpm Respiratory Rate: 18 br/min Systolic Blood Pressure: 159 mmHg Diastolic Blood Pressure: 92 mmHg SpO2: 98 % Oxygen Therapy: Room air Measurements This Visit Height/Length Measured: 168 cm Weight Measured: 90.72 kg Weight Dosin.720 kg Body Mass Index: 32.14 kg/m2 Problems List: Problem Onset Comments No Problems found Patient Education Shingles Continue the Valtrex as previously prescribed. May consider Benadryl if the symptoms of waking suddenly persist. Return to emergency department for any worsening symptoms. Shingles is an infection. It gives you a painful skin rash and blisters that have fluid in them. Shingles is caused by the same germ (virus) that causes chickenpox. Shingles only happens in people who: ? Have had chickenpox. ? Have been given a shot (vaccine) to protect against chickenpox. Shingles is rare in this group. What are the causes? This condition is caused by varicella-zoster virus. This is the same germ that causes chickenpox. After a person is exposed to the germ, the germ stays in the body but is not active (dormant) (more content not included)... Normal [facility] Progress Note - Nurseon 03-07 Progress Note - Nurse Patient walks to room 5. Patient is alert and oriented X 4. Patient is here because she believes she could possibly have a allergic reaction from medication she was prescribed yesterday. Patient was prescribed acyclovir. Patient states she heard a loud sound this morning that was not there. Patient also believes her throat is tight. States she has had a past anaphylactic reaction. Patient appears anxious. [Electronically Signed on: 03/27/2024 08:53 EDT] Anna Goel RN [Verified on: 03/27/2024 08:53 EDT] Anna Goel RN [facility] ED Clinical Summaryon 2023 ED Clinical Summary [facility] - Emergency Department [address] [place], [place] [address] ED Clinical Summary PERSON INFORMATION Name: VIDA GARCIA Age: 74 Years Sex: FEMALE : 1950 MRN: Acct#: Visit Reason: Rash; Skin problem; SKIN PROBLEM Arrival: 03/26/2024 07:20:13 Discharge: 03/26/2024 08:27:00 LOS: 000 01:07 Check In: 03/26/2024 07:20:13 Checkout:03/26/2024 08:27:00 Address: [address] [place] [id number] PCP: Sean Martin MD PROVIDER INFORMATION Provider Role Assigned Unassigned Trevor Cordon DO ED Provider 03/26/2024 07:32:19 [place], Ying Velasco ED Nurse 03/26/2024 07:39:22 VITALS INFORMATION Vital Sign Triage Latest Temperature Tympanic Temperature Temporal Artery Pulse Rate O2 Sat 98 % 98 % Respiratory Rate 18 br/min 18 br/min Blood Pressure /94 mmHg /94 mmHg MEDICAL INFORMATION Medications Given: Allergy Information: Soy; sulfa drugs; penicillins PHYSICIAN DOCUMENTATION DISCHARGE INFORMATION: Discharge Disposition: Home Discharge Location: Home PATIENT EDUCATION INFORMATION Instructions: Shingllynda, Kuaz-yu-Efxc Follow-Up: With: Address: When: Sean Martin [address] [place], [place] [id number] Business (1) Within 3 to 5 days Comments: home keep your hands from your eyes Valtrex You are welcomed to return anytime Recheck [facility] 3-4 days, if not improved. Camryn H АЛЕКСАНДР< ER PHYSICIAN< H Liane [facility] DIAGNOSIS: Rash of face Patient Understands: Yes - Patient/family/caregiver verbalizes understanding of instructions given Comment: Normal [facility] ED Note - Physicianon 2023 ED Note - Physician Patient: VIDA GARCIA Age: 74 years Sex: FEMALE : 1950 Associated Diagnoses: Rash of face Author: Trevor Cordon DO Basic Information Time seen: Date & time 03/26/2024 08:17:00. History source: Patient. Arrival mode: Private vehicle, walking. History limitation: None. History of Present Illness The patient presents with This patient was seen in room #5 for a rash to the medial aspect nose, left side, she states that she believes this is shingles returning, she has had it before, she states she does not believe it is contact dermatitis secondary to poison jake or any other such although she has been in contact with some plant units, she states she took no medicine for it, she has no eye discomforts, she has states that she has had eye problems with shingles in the past. She denies fever chest pain shortness of breath nausea vomiting diarrhea, she states she has no other rash. So on exam, in the presence of her , there is some erythema to the skin along the nose on the left side, extending up to the forehead, it is really not vesicular but is slightly irregular on the skin, typical of what you would see with a contact dermatitis. Pharynx is normal, there is no injection, she has no anterior posterior cervical adenopathy, she does not have a rash to her back or anterior torso or to her neck her lungs are clear, there is no expiratory wheeze or rales or paradox chest motion, the heart rate and rhythm is regular no murmur, PMI left chest, she is alert oriented x 4, and she is quite convinced that this is shingles, so a prescription for Valtrex was written, we were going to put her on steroids as well but she states that she reacts poorly to steroids, I told her to be careful about putting her hands around her eyes, return if she has any eye problems, and follow-up with her family doctor. To this, the patient agreed.. Impression and Plan Diagnosis Rash of face ([id number], Discharge, Medical) Plan Condition: Unchanged. Disposition: Admit time 03/26/2024 08:18:00. Prescriptions: Launch prescriptions Pharmacy: Valtrex 1 g oral tablet (Prescribe): 1 gm = 1 tab(s), Oral, BID, 20 tab(s), 0 Refill(s). Patient was given the following educational materials: Shingles, Dzzy-hf-Emav. Follow up with: Sean Martin Within 3 to 5 days home keep your hands from your eyes Valtrex You are welcomed to return anytime Recheck [facility] 3-4 days, if not improved. Camryn CORDON< ER PHYSICIAN< Lynn Mancia. Counseled: Patient, Regarding diagnosis, Regarding diagnostic results, Regarding treatment plan, Regarding prescription, Patient indicated understanding of instructions. [Electronically Signed on: 03/31/2024 04:06 EDT] Trevor Cordon DO [Electronically Signed on: 03/31/2024 04:08 EDT] Trevor Cordon DO [Verified on: 03/31/2024 04:06 EDT] Trevor Cordon DO [facility] ED Note-Nursingon 03-26-2024 ED Note-Nursing Patient arrives to [facility] ED via private vehicle. Ambulated with a steady gait to ED room 5. Alert and oriented X4. C/O shingles to left side of face. Patient reports history of shingles in the past [facility] ED Patient Summaryon 024 ED Patient Summary [facility] - Emergency Department [address] [place] [address] PATIENT DISCHARGE INSTRUCTIONS Patient Information Name: VIDA GARCIA Age: 74 Years Date of : 1950 Reason For Visit: Rash; Skin problem; SKIN PROBLEM Arrival Time: 03/26/2024 07:20:13 Primary Care Physician: Sean Martin MD Attending Physician: Trevor Cordon DO Comment: Visit Diagnosis: Diagnoses This Visit Rash ([id number]) Rash of face (R21) Skin problem ([id number]) The Pharmacy at [facility] is open Wednesday through Wednesday from 9A to 6P and Wednesday and Wednesday from 9A to 5P Prescription Information: If you have been given a prescription for narcotics, seek immediate medical attention if you have any difficulty breathing or any sudden status changes such as confusion and sleepiness. If you or anyone you know is experiencing suicidal thoughts, mental health, alcohol and/or drug addiction problems; contact the [facility] 29/03 Crisis Hotline -Text 4VRRU vq 100291. If you received any narcotics, sedation, or any other medication that causes drowsiness for the next 24 hours, unless otherwise directed: ? Do not drive a car. ? Do not operate machinery such as power tools, lawn mowers, drills, sewing machines, or stoves ? Avoid alcoholic beverages and drugs for allergies, nerves, or sleep ? Do not make important personal or business decisions or sign any legal documents With: Address: When: Sean Martin [address] [place] [address] Business (1) Within 3 to 5 days Comments: home keep your hands from your eyes Valtrex You are welcomed to return anytime Recheck [facility] 3-4 days, if not improved. Camryn CORDON< MALACHI PHYSICIAN< Lynn Rob [facility] Medication Information: The exam and treatment you received today in the [facility] Emergency Department were for an urgent problem and are not intended as complete care. It is important for you to follow up with a doctor, nurse practitioner, or physician?s dental front office assistant for ongoing care. If your symptoms become worse or you do not improve as expected and you are unable to reach your usual health care provider, you should return to the Emergency Department, we are available 24 hours a day. For those patients who have received Radiology results, the interpretation of your X-ray as given to you by our Emergency Department physician is only a preliminary report. The Radiologist will review your films and if there is a change in the diagnosis you will be notified by phone. Please make sure you have provided a working phone number so we can reach you if necessary. In the event that you had a lab culture while you were a patient in the Emergency Department, you will be notified by phone if there is a need to change your antibiotic. Please make sure you have provided a working phone number so we can reach you if necessary. [facility] Emergency Department has provided you with a complete list of medications post discharge. Please inform your spiral binder/provider of your visit and for further instruction on these medications. Any specific questions regarding your chronic medications and dosages should be discussed with your primary care physician(s) and/or pharmacist. New Medications The Pharmacy at [facility], [address] [place] [phone], [phone] valACYclovir (Valtrex 1 g oral tablet) 1 tab(s) Oral (given by mouth) 2 times per day. Refills: 0. Medications to Continue That Have Not Changed Other Medications aspirin (Aspirin 81 Chewtab) 1 tablet Chewed every day. Visit Information Allergies: Substance Reaction Symptoms Type Comments penicillins Drug sulfa drugs Drug Soy Food Vital Signs: Vitals and Measurements this Visit (last charted value for your 03/26/2024 visit) Vital Signs This Visit Temperature Oral: 37.0 DegC Heart Rate Monitored: 77 bpm Respiratory Rate: 18 br/min Systolic Blood Pressure: 148 mmHg Diastolic Blood Pressure: 94 mmHg SpO2: 98 % Oxygen Therapy: Room air Measurements This Visit Height/Length Measured: 167.6 cm Weight Measured: 91.0 kg Weight Dosin.000 kg Body Mass Index: 32.4 kg/m2 Problems List: Problem Onset Comments No Problems found Patient Education Shingles Shingles is an infection. It gives you a painful skin rash and blisters that have fluid in them. Shingles is caused by the same germ (virus) that causes chickenpox. Shingles only happens in people who: ? Have had chickenpox. ? Have been given a shot (vaccine) to protect against chickenpox. Shingles is rare in this group. What are the causes? This condition is caused by varicella-zoster virus. This is the same germ that causes chickenpox. After a person is exposed to the germ, the cassie (more content not included)... [facility] Coding Summaryon 04-12-2023 Coding Summary HTMLBase 64 MjclfifeHPy7kGy+PGhlYWQ+ BF0WUMVnZ60cgDZzlC2uS0FQ TElOSywgQVBQTElOSyIgbmFt NZ9ofTYnTSKu IC8+EY5nCHViNfmwmQTmy7F9 pHK8E61hre4uOCepvCL9NSBq KdFmwateb9weqXc2ZAudBjzc OyBt PQAooX33ZME0hK89Un87qKOf xFSms4teaXj8YuIjEQLiTOS1 qFcbJEuhe8MeNEIaU92wqRTl c2U6 OGIsdFqenMJqRfKunBA9uC5c DQyopefyn0nebaziEst8xq90 sAVbk9T6fOD9O7KlavJ2INNu bGQg GstktUJUaG6dxweni0kcikyt BeJfZXLhXCr6AVn5WHWmdIqy GeAnCO59UZL3AWFhukJgQ8Ub LWFs tDxxLrQ7e8Q2Pj5ZD7WZWcyq W0KEBCJINGrcoZW+OQ05tu55 X1GfLinlVcd4QTDhVTI2vAN7 aD0n XKGdROzud7I4fWV8X4OkowGl ne5eq8xyXRPlEEdxG54hfHJq o1Z9JUGnsOL2MSTjrEgmIlHj aG93 Oyc+YTTztEtfd0YnNsqxe5lb y8pbsMs9GwetBTOdwkMnfMep CQT1a0NdTa4eRFUvvRE4tTT5 aD0i UdDqOtU7DOwwM365DpPrmFPy VhrtG25jP4QroCU+PHRyPjx0 RQXjqYtmFJ0kV9YnDFAicxoh bGVm gTegBT0iHDIgoudmUMWgyW7t QOQnS5z4TqAaImR6RHbhU4Et FMWhusjyLb46kS4yHrFqOvU4 MGlu G9ImwzS4ICIvuPVjZMduVPR8 V46oq1K6VZNuBNUzVJT3xMM7 rK4dqGmnofydbOVmySmpycQz dGlj NBlzQXjnD444DOOcwXbgUxLb ZGluZyBEYXRlOiAgMDgvMDcv MjAyMzwvdGQ+WXIbHXJ1bUpg PSAn iUBlBIcoLb2iiOqdrRtnFS2h FUJskhngTMPheQ3mYMVzlUNq cXikRB8kCDGtawpqe366JyOj MHB0 GNCxoXUyT9BtdL9zLlDzAOQt FFWfG9OekCDvEJnxE329KWmv MnT4CQWtdnBeU3LlGNUarCut OiB0 x4H4Yr6Zf0ZzzniqJ4OrvBUv LgErWrrtXXs3U6DqGxylbBE+ UY76WDEoAQ14FHq9VCI1eNmn PSdi XQWyO7DcoS7dDmDcOHBwCDSe Oyc+PHRhYmxlIHdpZHRoPScx GOBqSmMyqFeoEM5xKg8sFGNx LWNv sCsegELqGaFws4jpGNHrIHdv LB4ehScmT2FtvNC6NAVfk9c7 St74B12gY4AugPA+PGNvbCB3 aWR0 dE8lMwTbFfK7QFnvT887PqLd xTFsKpxnt7mzz8jakYr5MsK6 XZWrpfYgjTthCUV0e9OgLi34 Y29s IHdpZHRoPSIxNSUiIHZhbGln hj9puU8mUk6+PBAmiFW8gHA0 aT8dSqRfElT1CCqgV636RkWz cCIv Cwcmu9gfg7yiqJa1QiUwRDQf acNymAakLHT4z0WzMe13A0Uj nHmht1ZoOtj3kx86rHNvf2P6 bGU9 K2BwPXVmuntewQHrbJfjHB9g UWWttmdhVMGkbO6eCHRuR6y7 CoJsAaH4OQzsQ1YjjxM7BGHm bGQg NLGyrWOAtV2dymoov8vwkzyi DvQaTTOjRZv5LFf1DTHauRdi StMjYXT2TsU3FNQ0jUJckC8h bGln gsroqB6jIdv+SRU7wNEmzOOG KU3sWvwadGK+QLEzWOL3lWuc VFjsLKOttT9lBUGuD8i4YzHn LjA1 CJptK1EftfC9UJLarGBeIDTw kCHHiW4vbhdgs1warismYvHx MRTeBLv0UEf4YCVzbSlhUoLp ZWZ0 UoN4IZD9zZCivI4wqHbldyfc mG9eExv+UbhmzMhbQIH5WRz1 M3OwGxd1KGZsdAkrIG2liITl ZGlu Uf1mhMebtZcrRO9nSRLnvdkl j559BpElz3ifYDHllAKyQTwn MEW9R69ra3I3OJRiLGZjLRD4 dGV4 oI4ufSgnltsubNUrcEikotOa dBvwZWrhQYkxD934VNIbwVfd KwIdPAi1K6IxFvy8CIPnlHlr ZT0n mWNzWWhjTu9euJdvyZvjWX0e DVDyjzjup744OiXqg2onUXRt jLUnUDweWWA5J33kn3E3NZNi MDAw MPY8bIW4eZ8lnFvsmritqUZm iNhfmnDakRlcENynRFfkV339 NRLwtOtjElAbrAa5S4MeQgy3 ZCBz bSgwPG1beWHrCCasEn4djObw xRefUE8zXTFnwolcc005MsEp r9smULZniHWbPBzmZFV4O98v b3I6 MCByNPIrUDJ9uKC6tU0kpYtu bjogbGVmdDsgdmVydGljYWwt NKyzD662WJAruHcjHaRhaLsl bnQg NSdrAPf1Y5KnYkayzFO+PC90 NIXtXQ63qFZayFDqg3ddoMq6 SkKsTSYuBVL6hVknDHcjy2Ed ZXIt V09ddUBgm5Y7CERhoKgeuETv VtRkcBA9hS0iQKtgmclpc7lq nccgSnscb5sacr97qH18M88l IHdp LESvVPMnMQOiFRBqkCwnrs0i kQ5xBh2+LYTugEB2cPI8fN9e TTWvEcM3NFogJ994XlHwpXHl Pjxj c7yul2agtBt1MbP2MDGwxuJg zUupECZ7m9LdYx05Y11nIUin PJXrLOEiYKBiQGMhjNtwds3v dG9w Ii8+QGLpyIJ1eGZ8jP9qNuJi JdM2MDujD048CjAymMWiVmla J30iU3YtvLJ+JPPuVqr7RAOz dHls GG7exSGpPZgwFz4xYKK6YgCg SgRpPMzjX6EiTZWbthbylych sLU1CCTvPRWieT09Fq6upFxo MTBw gYJGxA5lbyxan1mxoctfUcIq DIXjMUl5YNb4SVBqbCynZdIa UPS4XbC8KKY1cYDofF0grPzy bjog eF8eF9HeHKGvockkPs11wA9z VpRbVvN4CUzwQws+FbcLIO1V PQUPIMANPPCAXS87PQ83lRQg c3R5 iUT6J3TdDIDfinxvlykoxJA0 EYCcSUWjjV42sRNyZSxwYy4r f1G1j920DVLiMCYlsN23Gp0i dDog UFNlaWRDpU0jkkaze6ybeuvn UfDcWDCmKHb4DUd1KRZejCvd UjSoEXS8YdN5FIX4eTKraQ2k bGln cbkwkO9rWaf+MDYvMTMvMTk1 MjwvdGQ+WPAtDFW3uFrrKHvt CIBojP5mKMUwL5m0ZdDyPqY1 MGlu J5DzBOWbmlcfHi24tU5nZpXc OuW4ERceD0SychC4KIIucZQs MUvdFYH3O61fc0U7LNUhUSGp MDA7 gEK3qL0tpOelzimvuNHbvWvl zlPjqHmpXVutKLylJ002OYNa qCxeHpfjZKbrYTIgUQ26TN70 dGQg c5Z1vAD0W2BvZZIuqckvuvpo tUI9VTXeGILbmN86kACoOZpv Uz5ut8S4v342GZJyBWPkbF08 Zm9u yQrjWJEjwVNUaQ7cbgjyc9bn vdpdEpScYFCnVXh7UIz5PUVc tCqhYfGrQOX2NzV3MMR6qALd bC1h aDzdvdwdhP6nLxi+RkVNQUxF AD84ZT80jZEcf6B5uRH1A9Nq TUInmkcpncahhFC9XLIiNGKn aW47 eHNtYQoeGc6ec9Z9j887MGQy PIQfxB72Zx2mkSepTVVigEZW kN1xomtdd8ynqnhhPpXmOEKk MDt0 HMd7GEEkyGypDeJsOQZ6JrF7 NPG3zUGorG0rjEsoidfejI3k Oyc+KK5blpdbydF0BK14XG16 L3Ry PjwvdGFibGU+PHRhYmxlIHdp JODmKNskNEMtUeAxmVfkJX1t Tq7xFKVnRILqdOgfrMDvBwKc b2xs QEHhNOynFZ6lcHtwW2ZgeYB0 IOWpy6a1Wu10C27sJ1TciWE+ OZXfrYH1bAX6fF4vMmAxQgQ7 YWxp Y786EiMjoWUhBuuqq4neu5qc xTg6MaCzKUThmaBfrVchETK6 j1PyZy48C62uVIuyKAIkOUHs MCUi FHCovUrenv7gnW2xRm8+PGNv jHC1pFM8dY9oWfAjKaE8XMxf T898AjCzkCTnIcwxH39nC2Oz dXA+ KTDlMae4GOHkrWiyLG8opPMj BFtjTy5gHCI2HjYlYaXbIMay X9MdMRIchdyetaafrNH3CACp MDUw vL95Wa1biTxwOe4fFKCuPGE6 MQDplEOzM3MbnB2iCsIxUTHv OXVwG5QowXRdCKwsR521DMbp ZnQ7 IJRnbrArI1ZyTBFrxDfkCgY2 f3X8Ui9OvUokmMTtHS6lHbMh CHm4P3KhAcy0QNHdjIzrOY7u cGFk KTzoDf7qaMdwuFcoWP8tUDWe hkcii042HgGhx5dwQUQmvAAy HNeqPLD0A51ml5W4SCBvGHAd MDA7 dEN7cW2gnYauojhpdWBfyJhq zxYgbVtbSCczHItcM941WYHx lHjaKzOTNrj8H5DmTen5EIUs dHls EB8euTOkURxuIc9prSzojBoe GB9bXUOaunxiz689DtSpe9yj ZDYgmYHpAEzeBJN7P59bw2T2 ICMw SBQkRUD8zOD8gA2mqOddefdb bGVmdDsgdmVydGljYWwtYWxp H480ISLhrMojQv4TUqs6U0Ol Pjx0 GZJyjMdzQM6mfTCxZWfxJx1s aUwrzTieIE1hTLVttvrgo574 KsIpy5afHJCvhPVbUXqlYWI1 Y29s f8X9HDNaSOZsIFH7oFW6aK4n bGlnbjogbGVmdDsgdmVydGlj JQpgRVzxW866QNXfsNliInWx eWVy OjwvdGQ+ID09vz59G9NcBsga Yjg0LUTuMZK3jIX7hU9wBUUh LKuyq8L8hCY6D5AwxwBubj5a b2xs YXB (more content not included)... Normal [facility] Vital Signs Date Time Vital Sign Value Performing Clinician Faci lity 08-25-2024 08:05-0500 Body height 167.[address] Sean Martin MD Work Phone: [facility] 08-25-2024 08:00-0500 Body mass index (BMI) [Ratio] 32.1 kg/m2 Dr. Sean Martin MD Work Phone: [facility] 08-25-2024 08:00-0500 Body weight 90.[address] Sean Martin MD Work Phone: [facility] 08-25-2024 08:00-0500 Diastolic blood pressure 80 mm[Hg] Dr. Sean Martin MD Work Phone: [facility] 08-25-2024 08:00-0500 Systolic blood pressure 142 mm[Hg] Dr. Sean Martin MD Work Phone: [facility] Encounters Encounter Date Encounter Type Care Provider Facility Start: 07-30-2025 ambulatory Sean Martin Facility:[facility] Start: 11-07-2024 End: 11-07-[address] Sean Martin MD Work Phone: [facility] Work Phone: Start: 11-07-2024 End: 11-07-[address] Sean Martin MD -Ultrasound, [facility] Work Phone: Start: 11-07-2024 End: 11-07-2024 ambulatory Sean Martin Facility:[facility] Start: 08-25-2024 End: 08-25-[address] Cookie Patel DO -[facility] Work Phone: Start: 08-25-2024 End: 08-25-[address] Cookie Patel DO [facility] Start: 08-25-2024 End: 08-25-2024 ambulatory Sean Martin Facility:[facility] Start: 07-27-2024 End: 07-27-[address] Cookie Patel DO -[facility] Work Phone: Start: 07-27-2024 End: 07-27-2024 ambulatory Sean Martin Facility:[facility] Start: 06-27-2024 End: 06-27-2024 Emergency department patient visit Sean Martin Facility:[facility] Start: 03-27-2024 End: 03-27-2024 Emergency department patient visit Sean Martin MD Facility:[facility] Start: 03-26-2024 End: 03-26-2024 Emergency department patient visit Sean Martin MD Facility:[facility] Start: 07-26-2023 End: 07-26-[address] [facility] Work Phone: Start: 07-26-2023 End: 07-26-[address] [facility] Work Phone: Start: 07-02-2022 End: 07-02-[address] [facility] Work Phone: Start: 07-02-2022 End: 07-02-[address] [facility] Procedures Date Procedure Procedure Detail Performing Clinician Start: 11-07-2024 Complete ultrasound of kidneys and bladder Dr. Sean Martin MD Work Phone: Start: 07-27-2024 Screening mammography Ramírez Martin MD Work Phone: Start: 07-02-2022 Screening mammography Plan of Treatment Date Care Activity Detail Author Start: 07-26-2023 Screening mammography SCRN PAYAM M (CAD)W/RAZA BILAT [facility] Payers Date Payer Category Payer Self-pay [id number] 2024 Unknown [id number] 2023 Medicare [id number] 1950 Unknown [id number] 18 1950 Unknown [id number] 18 Medicare MEDICARE PART A B [id number] Private Health Insurance [facility] [id number] Unknown [id number] 62 Unknown [id number] 62 Unknown [id number] 62 Unknown [id number] 62 Unknown [id number] 62 Social History Date Type Detail Facility Start: 08-12-2021 End: 08-18-2022 Tobacco smoking status NHIS Unknown if ever smoked [facility] Start: 1950 Sex Assigned At Female [facility] Start: 06-27-2024 Tobacco smoking stat us NHIS Never smoked tobacco (finding) [facility] Start: 11-22-2024 Sex Female (finding) [facility] Radiology Diagnostic study note 11-07-2024 Note Date & Type Note Facility 11-07-2024 Radiology Diagnostic study note [facility] Imaging Services [address] [place] [address] Kidney and Bladder MR#: [id number] Acct: [id number] Name: VIDA GARCIA Rep #: [id number] : 1950 F 74 From: Troy Baig MD PCP: Dr. Sean Martin MD Status: REG CLI Study:Kidney and Bladder Date of Exam: 0 11/07/24 Exam# [id number] Ordering Dr: Malachi Martin MD PROCEDURE: KIDNEY AND BLADDER REASON FOR EXAM: Recurrent UTIs. TECHNIQUE: Bilateral renal ultrasound. COMPARISON: None. FINDINGS: Normal renal sizes, parenchymal thicknesses, and echotextures. No hydronephrosis. 1.4 cm x 1.5 cm x 1.2 cm cyst in the midportion of the left kidney. RIGHT Kidney Size: 10.6 cm x 5.8 cm x 5.1 cm Volume: 467 mL Cortical Thickness (if discernible): 1.1 cm (>6mm is normal) LEFT Kidney Size: 10.9 cm x 5.1 cm x 4.8 cm Volume: 141 mL Cortical Thickness (if discernible): 1 cm (>6mm is normal) The urinary bladder is unremarkable. US/Kidney and Bladder IMPRESSION: 1.4 cm x 1.5 cm x 1.2 cm cyst in the midportion of the left kidney. No other abnormality is seen. Reading Location: [id number] CC: Dr. Sean Martin MD ~ Security Assurance Analyst: Signed [facility] Evaluation note 08-25-2024 Note Date & Type Note Facility 08-25-2024 Evaluation note Diagnosis Onset Date Resolution Encounter for routine gynecological examination noneactive August 25 024 7:40am [facility] Work Phone: Clinical Note 03-27-2024 Note Date & Type Note Facility 03-27-2024 Note Education Materials Infectious Disease Shingles Continue the Valtrex as previously prescribed. May consider Benadryl if the symptoms of waking suddenly persist. Return to emergency department for any worsening symptoms. Shingles is an infection. It gives you a painful skin rash and blisters that have fluid in them. Shingles is caused by the same germ (virus) that causes chickenpox. Shingles only happens in people who: ? Have had chickenpox. ? Have been given a shot (vaccine) to protect against chickenpox. Shingles is rare in this group. What are the causes? This condition is caused by varicella-zoster virus. This is the same germ that causes chickenpox. After a person is exposed to the germ, the germ stays in the body but is not active (dormant). Shingles develops if the germ becomes active again (is reactivated). This can happen many years after the first exposure to the germ. It is not known what causes this germ to become active again. What increases the risk? People who have had chickenpox or received the chickenpox shot are at risk for shingles. This infection is more common in people who: ? Are older than 60 years of age. ? Have a weakened disease-fighting system (immune system), such as people with: ? HIV (human immunodeficiency virus). ? AIDS (acquired immunodeficiency syndrome). ? Cancer. ? Are taking medicines that weaken the immune system, such as organ transplant medicines. ? Have a lot of stress. What are the signs or symptoms? The first symptoms of shingles may be itching, tingling, or pain in an area on your skin. A rash will show on your skin a few days or weeks later. This is what usually happens: ? The rash is likely to be on one side of your body. ? The rash usually has a shape like a belt or a band. Over time, the rash turns into fluid-filled blisters. ? The blisters will break open and change into scabs. ? The scabs usually dry up in about 2?3 weeks. You may also have: ? A fever. ? Chills. ? A headache. ? A feeling like you may vomit (nausea). How is this treated? The rash may last for several weeks. There is not a specific cure for this condition. Your doctor may prescribe medicines. Medicines may: ? Help with pain. ? Help you get better sooner. ? Help to prevent long-term problems. ? Help with itching (antihistamines). If the area involved is on your face, you may need to see a specialist. This may be an eye doctor or an ear, nose, and throat (ENT) doctor. Follow these instructions at home: Medicines ? Take evhj-cop-cyviqdz and prescription medicines only as told by your doctor. ? Put on an anti-itch cream or numbing cream where you have a rash, blisters, or scabs. Do this as told by your doctor. Helping with itching and discomfort ? Put cold, wet cloths (cold compresses) on the area of the rash or blisters as told by your doctor. ? Cool baths can help you feel better. Try adding baking soda or dry oatmeal to the water to lessen itching. Do not bathe in hot water. ? Use calamine lotion as told by your doctor. Blister and rash care ? Keep your rash covered with a loose bandage (dressing). ? Wear loose clothing that does not rub on your rash. ? Wash your hands with soap and water for at least 20 seconds before and after you change your bandage. If you cannot use soap and water, use hand telecom network manager. ? Change your bandage as told by your doctor. ? Keep your rash and blisters clean. To do this, wash the area with mild soap and cool water as told by your doctor. ? Check your rash every day for signs of infection. Check for: ? More redness, swelling, or pain. ? Fluid or blood. ? Warmth. ? Pus or a bad smell. ? Do not scratch your rash. Do not pick at your blisters. To help you to not scratch: ? Keep your fingernails clean and cut short. ? Wear gloves or mittens when you sleep, if scratching is a problem. General instructions ? Rest as told by your doctor. ? Wash your hands often with soap and water for at least 20 seconds. If you cannot use soap and water, use hand telecom network manager. Doing this lowers your chance of getting a skin infection. ? Your infection can cause chickenpox in people who have never had chickenpox or never got a chickenpox vaccine shot. If you have blisters that did not change into scabs yet, try not to touch other people or be around other people, especially: ? Babies. ? women. ? Children who have areas of red, itchy, or rough skin (eczema). ? Older people who have organ transplants. ? People who have a long-term (chronic) illness, like cancer or AIDS. ? Keep all follow-up visits. How is this prevented? A vaccine shot is the best way to prevent shingles and protect against shingles problems. If you have not had a vaccine shot, talk with your doctor about getting it. Where to find more information ? Centers for Disease Control and Prevention: [employer]. (more content not included)... [facility] Clinical Note 03-26-2024 Note Date & Type Note Facility 03-26-2024 Note Education Materials Infectious Disease Shingles Shingles is an infection. It gives you a painful skin rash and blisters that have fluid in them. Shingles is caused by the same germ (virus) that causes chickenpox. Shingles only happens in people who: ? Have had chickenpox. ? Have been given a shot (vaccine) to protect against chickenpox. Shingles is rare in this group. What are the causes? This condition is caused by varicella-zoster virus. This is the same germ that causes chickenpox. After a person is exposed to the germ, the germ stays in the body but is not active (dormant). Shingles develops if the germ becomes active again (is reactivated). This can happen many years after the first exposure to the germ. It is not known what causes this germ to become active again. What increases the risk? People who have had chickenpox or received the chickenpox shot are at risk for shingles. This infection is more common in people who: ? Are older than 60 years of age. ? Have a weakened disease-fighting system (immune system), such as people with: ? HIV (human immunodeficiency virus). ? AIDS (acquired immunodeficiency syndrome). ? Cancer. ? Are taking medicines that weaken the immune system, such as organ transplant medicines. ? Have a lot of stress. What are the signs or symptoms? The first symptoms of shingles may be itching, tingling, or pain in an area on your skin. A rash will show on your skin a few days or weeks later. This is what usually happens: ? The rash is likely to be on one side of your body. ? The rash usually has a shape like a belt or a band. Over time, the rash turns into fluid-filled blisters. ? The blisters will break open and change into scabs. ? The scabs usually dry up in about 2?3 weeks. You may also have: ? A fever. ? Chills. ? A headache. ? A feeling like you may vomit (nausea). How is this treated? The rash may last for several weeks. There is not a specific cure for this condition. Your doctor may prescribe medicines. Medicines may: ? Help with pain. ? Help you get better sooner. ? Help to prevent long-term problems. ? Help with itching (antihistamines). If the area involved is on your face, you may need to see a specialist. This may be an eye doctor or an ear, nose, and throat (ENT) doctor. Follow these instructions at home: Medicines ? Take mddl-fev-yvutpby and prescription medicines only as told by your doctor. ? Put on an anti-itch cream or numbing cream where you have a rash, blisters, or scabs. Do this as told by your doctor. Helping with itching and discomfort ? Put cold, wet cloths (cold compresses) on the area of the rash or blisters as told by your doctor. ? Cool baths can help you feel better. Try adding baking soda or dry oatmeal to the water to lessen itching. Do not bathe in hot water. ? Use calamine lotion as told by your doctor. Blister and rash care ? Keep your rash covered with a loose bandage (dressing). ? Wear loose clothing that does not rub on your rash. ? Wash your hands with soap and water for at least 20 seconds before and after you change your bandage. If you cannot use soap and water, use hand telecom network manager. ? Change your bandage as told by your doctor. ? Keep your rash and blisters clean. To do this, wash the area with mild soap and cool water as told by your doctor. ? Check your rash every day for signs of infection. Check for: ? More redness, swelling, or pain. ? Fluid or blood. ? Warmth. ? Pus or a bad smell. ? Do not scratch your rash. Do not pick at your blisters. To help you to not scratch: ? Keep your fingernails clean and cut short. ? Wear gloves or mittens when you sleep, if scratching is a problem. General instructions ? Rest as told by your doctor. ? Wash your hands often with soap and water for at least 20 seconds. If you cannot use soap and water, use hand telecom network manager. Doing this lowers your chance of getting a skin infection. ? Your infection can cause chickenpox in people who have never had chickenpox or never got a chickenpox vaccine shot. If you have blisters that did not change into scabs yet, try not to touch other people or be around other people, especially: ? Babies. ? women. ? Children who have areas of red, itchy, or rough skin (eczema). ? Older people who have organ transplants. ? People who have a long-term (chronic) illness, like cancer or AIDS. ? Keep all follow-up visits. How is this prevented? A vaccine shot is the best way to prevent shingles and protect against shingles problems. If you have not had a vaccine shot, talk with your doctor about getting it. Where to find more information ? Centers for Disease Control and Prevention: www.cdc.gov Contact a doctor if: ? Your pain does not get better with medicine. ? Your pain does not get better after the rash heals. ? You have any of these signs of inf (more content not included)... [facility] Evaluation note Note Date & Type Note Facility Evaluation note No assessment information availa ble [facility] Work Phone: Reason for referral (narrative) Note Date & Type Note Facility Reason for referral (narrative) No reason for referral information available 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) August 25, 2024 7:40am UTI November 07, 2024 12:3 4pm Reason for Visit Admit Date Encounter for routine gynecological exam ination August 25, 2024 7:40am Family History No Family History Records Found Relationship Condition Age at Onset Recorded Date/T adi mother Cardiac disease Unknown father Hypertension Unknown Relationship Condition Age at Onset Recorded Date/T adi mother Cardiac disease Unknown father Hypertension Unknown sister Malignant neoplasm of breast Unknown Summary Purpose Advance Directives No Advanced Directives Records FoundNo Advanced Directives Records Found Additional Source Comments Goals (unrecognized section and content) Goals may be documented in a n alternate sectionGoals may be documented in an alternate sectionGoals may be documented in an alternate section Care Teams (unrecognized sec tion and content) Team Status: Active Member Role Status Dates Dr. Sean Martin MD Family Provider Active Dr. Sean Martin MD Primary Care Provider Active Team Status: Inactive Member Role Status Dates Dr. Sean Martin MD Primary Care Provider Active Ayana Chang MACHINE PECAN PICKER, MACHINE PECAN PICKER-C Attending Provider, Referring Provider Active Team Status: Active Member Role Status Dates Dr. Sean Martin MD Primary Care Provider Active Team Status: Inactive Member Role Status Dates Dr. Sean Martin MD Primary Care Provider Active Start: July 27, 2024 End: July 27, 2024 Dr. Cookie Patel DO Attending Provider Activ e Start: July 27, 2024 End: July 27, 2024 Dr. Cookie Patel DO Referring Provider Activ e Start: July 27, 2024 End: July 27, 2024 Team Status: Inactive Member Role Status Dates Dr. Sean Martin MD Primary Care Provider Active Start: August 25, 2024 End: August 25, 2024 Dr. Sean Martin MD Referring Provider Active St art: August 25, 2024 End: August 25, 2024 Dr. Cookie Patel DO Attending Provider Activ e Start: August 25, 2024 End: August 25, 2024 Team Status: Inactive Member Role Status Dates Dr. Sean Martin MD Primary Care Provider Active Start: November 07, 2024 End: November 07, 2024 Dr. Sean Martin MD Attending Provider Active St art: November 07, 2024 End: November 07, 2024 Dr. Sean Martin MD Referring Provider Active St art: November 07, 2024 End: November 07, 2024 INFORMATION SOURCE (unrecogn ized section and content) DATE CREATED AUTHOR 04/07/2024 [facility] DATE CREATED AUTHOR AUTHOR'S LALITO ATKAELYN 05/17/2025 [facility] FOR RECORDS PERTAINING TO PATIENTS WHO ARE OR HAVE BEEN ENROLLED IN A CHEMICAL DEPENDENCY/SUBSTANCEABUSE PROGRAM, SOME INFORMATION MAY BE OMITTED. This clinical summary was aggregated from multiple sources. Caution should be exercised in using it in the provision of clinical care. This summary normalizes information from multiple sources, and as a consequence, information in this document may materially change the coding, format and clinical context of patient data. In addition, data may be omitted in some cases. CLINICAL DECISIONS SHOULD BE BASED ON THE PRIMARY CLINICAL RECORDS. [employer] provides no warranty or guarantee of the accuracy or completeness of information in this document.
--- NOTE | 2025-07-30 07:15 | BI_ITS ---
EXAM: SCRN MAMM (CAD)W/RAZA BILAT DATE: 07/30/2025 CLINICAL HISTORY: F, Age 75 y/o , SCREEN FOR BREAST CANCER TECHNIQUE: Procedure Code: [id number] Modality: MG Procedure: SCRN MAMM (CAD)W/RAZA BILAT COMPARISON: Prior exam(s) were compared FINDINGS: TISSUE DENSITY: There are scattered areas of fibroglandular density. Bilateral Breast Mammographic Findings: No significant masses, calcifications or other abnormalities are identified. BI/SCRN MAMM (CAD)W/RAZA BILAT IMPRESSION: No mammographic evidence of malignancy in either breast. OVERALL FINAL ASSESSMENT BI-RADS 1: NEGATIVE. RECOMMENDATION: Routine annual follow-up in 1 Year Additional Recommendation none A letter with findings and recommendations will be mailed to the patient. Reading Location: [id number]
== END | disposition home or self-care (01) ==
PROVIDERS: PCP Family Medicine; Referring Provider Nurse Practitioner Women's Health; Visit Provider Nurse Practitioner Women's Health
DX: Z12.31 Encounter for screening mammogram for malignant neoplasm of breast (principal)
CPT/HCPCS: 77063; 77067